=== PATIENT | female | born 1935 | race Caucasian/White ===

== ENCOUNTER 2017-01-09 09:14 | Outpatient (CLI) | payer OTHER ==
[~2017-01-09] VITALS: Ht 157.5 cm; Wt 65.0 kg
[2017-01-09 09:16] VITALS: BP 126/60; PULSE 79; RESP 18; Ht 157.5 cm; Wt 65.0 kg
[2017-01-09] MEDS ORDERED: FER325 PO (09:30)
[2017-01-09] MEDS ORDERED: LISI40TA9 PO (09:30)
[2017-01-09] MEDS ORDERED: ASPI-664 PO (09:30)
--- NOTE | 2017-01-09 13:42 | CONS ---
[facility] INITIAL OUTPATIENT CONSULTATION NOTE DATE OF CONSULTATION: 01/09/2017 PLACE OF SERVICE: [facility] ASSESSMENT AND PLAN: A very pleasant 81-year-old lady with hypertension and dyslipidemia and a few other comorbidities who became septic likely from complication of E. coli UTI as well as acute cholecystitis well managed with percutaneous cholecystostomy tube placement. In this setting, the best results are achieved by elective laparoscopic cholecystectomy, which would both take the tube out of the clinical picture as well as take the gallbladder out of the body which would then prevent further episodes hopefully in the future. The patient is physically strong enough and eligible to undergo this operation, and I believe that this may still be an elective operation. She has an appointment to see her business performance advisor next week, which would be helpful in terms of risk assessment. I have recommended that she considers undergoing laparoscopic cholecystectomy. I described the reasoning behind the recommendation as well as the operation in detail, the risks, benefits and alternatives including the alternative of just removing the percutaneous cholecystostomy tube, but then having the added risk of further issues down the line. After careful consideration of all their options, the patient and her daughter appeared to understand and wished to proceed with surgery. With above assessment, I have recommend the followin. I agree with cardiology consultation as a preoperative workup. 2. History and physical with the patient's primary care physician. 3. Schedule the patient for laparoscopic, possible open cholecystectomy as an outpatient procedure with possible need for overnight observation given the recent events. Thank you again for allowing us to participate in the care of this very pleasant lady and her wonderful family. If there are any questions, please feel free to contact me at [phone]. UPDATED CLINICAL SUMMARY: A very pleasant 81-year-old lady with comorbidities including hypertension, who recently underwent percutaneous cholecystostomy tube placement at the end of October in an outside hospital. The patient was septic and had to be treated in the intensive care unit with bacteremia and eventually stabilized and was discharged home with followup plan to see a surgeon for a laparoscopic cholecystectomy. COMORBIDITIES: 1. BMI 26.2. 2. Hypertension. 3. Urinary tract infections. 4. Recent bacteremia as above linked to possible acute cholecystitis requiring percutaneous cholecystostomy tube placement 11/26/2016, associated with sepsis and acute hypoxia and non-STEMI with Escherichia coli urinary tract infection and gram-negative bacteremia. There was also acute renal injury during this episode and syncopal episode without obvious head injury. Hypomagnesemia, hypokalemia and thrombocytopenia was noted. 5. Dyslipidemia. 6. Iron deficiency. HISTORY OF PRESENT ILLNESS: The patient is a very pleasant 81-year-old lady with above-mentioned comorbidities whom we were kindly asked to consult regarding management of her gallbladder. Since the discharge from the hospital , she has been doing well without any other episodes of significant illness that required any visits to the emergency department or the hospital. She has had her cholecystostomy tube which has been putting out between 20 to 30 mL of greenish type fluid every day. She has not had any significant abdominal pain and no changes in her appetite or ability to eat. No blood in the stool or urine. She did not see other surgeons after her hospitalization and she was referred to us for possible cholecystectomy. ALLERGIES: NO KNOWN DRUG ALLERGIES. HOME MEDICATIONS: Include: 1. Aspirin. 2. Ferrous sulfate. 3. Lisinopril. SOCIAL HISTORY: The patient lives with family. She does not report any smoking , drinking, or intravenous drug use. FAMILY HISTORY: No mention of major medical, surgical or oncologic problems in the family. REVIEW OF SYSTEMS: Other than the above-mentioned, there are no other pertinent positives or pertinent negatives in a complete 14-point review of systems. PHYSICAL EXAMINATION: GENERAL: The patient appears to be a very pleasant lady of descent, appearing stated age, sitting in a chair comfortably and in no acute distress. She did walk in with a cane, but the family has explained that this was to prevent dizziness and that otherwise she does not need it to walk. BMI is 26.2. VITAL SIGNS: Temperature 98.1, blood pressure 126/60, pulse 79, respiratory rate 18, pulse oximetry 98% on room air. HEENT: Normocephalic and atraumatic. Extraocular muscles and hearing are grossly intact bilaterally and symmetrically. Sclerae are nonicteric. Oral cavity is clear; oral mucosa appeared to be pink and moist. Dentition: poor. NECK: Supple. There is no lymphadenopathy or JVD. There is no submental, submandibular or supraclavicular lymphadenopathy. CHEST: Rises symmetrically with each breath; patient is breathing comfortably. There are no audible wheezes, rales or rhonchi on the gross exam. HEART: Pulse is regular and palpable on the right wrist. Capillary refill was normal. Carotid pulses are palpable bilaterally and symmetrically in the neck. EXTREMITIES: Lower extremities contain no pitting edema around the ankles bilaterally and symmetrically. ABDOMEN: Soft, nontender and nondistended. There is no evidence of organomegaly, caput medusae, engorged subcutaneous veins or ascites. She has a percutaneous tube coming out from the right upper quadrant which is draining into a bag. No peritoneal signs or guarding. The bag contains minimal amount of fluid with hint of bile. SKIN: Appears to be pink and feels warm to touch. NEUROLOGIC: Awake, alert, and follows commands appropriately. LABORATORY DATA: None for this visit. IMAGING: The patient had a CT of the abdomen and pelvis dated 11/25/2016 that showed cholelithiasis with pericholecystic fluid, which may indicate acute cholecystitis. There was also bilateral pelviectasis of unclear significance which may be normal for this patient. She also had an IR cholangiogram tube placement 11/26/2016 that showed successful percutaneous cholecystostomy tube placement without any immediate problems. Dictated By: JUDY SANCHEZ/DAVID Conf#: [id number] DID#: [id number] CC: GIANCARLO CRUZ MD;*EndCC* MTDD
== END 2017-01-09 14:39 | disposition home or self-care (01) ==
LOC: HPC 09:14
PROVIDERS: ATTEND Transplant Surgery
DX: K81.0 Acute cholecystitis (principal); Z97.8 Presence of other specified devices; E78.5 Hyperlipidemia, unspecified; E61.1 Iron deficiency; Z87.440 Personal history of urinary (tract) infections; I21.4 Non-ST elevation (NSTEMI) myocardial infarction
CPT/HCPCS: G0463

== ENCOUNTER 2017-02-16 05:44 | Day surgery (SDC) | payer OTHER ==
[~2017-02-16] VITALS: Ht 157.5 cm; Wt 65.0 kg
[2017-02-16] VITALS (15 sets, daily range): BP systolic 95–140; BP diastolic 47–75; PULSE 62–74; RESP 14–27; Ht 157.5 cm; Wt 65.0 kg
[~2017-02-16 05:44] MED LIST: ASPI-664 PO; FER325 PO; LISI40TA9 PO
[2017-02-16] MEDS ORDERED: D5W-0.45 NACL + KCL 20 MEQ 1,000 ML IV SCH (06:00)
[2017-02-16] MEDS ORDERED: CEFAZOLIN 2 GM/50 ML (PMX) 50 ML IVPB SCH (06:00)
[2017-02-16] MEDS ORDERED: ATROPINE 1 MG/10 ML SYRINGE IV PRN (06:30)
[2017-02-16] MEDS ORDERED: FENTAnyl 50 MCG/ML VIAL IV PRN ×2 (06:30)
[2017-02-16] MEDS ORDERED: DIPHENHYDRAMINE 50 MG INJ IV PRN (06:30)
[2017-02-16] MEDS ORDERED: hydrALAzine 20 MG INJ IV PRN (06:30)
[2017-02-16] MEDS ORDERED: NEOSTIGMINE 3 MG/3 ML SYRINGE ONE (06:30)
[2017-02-16] MEDS ORDERED: MEPERIDINE 25 MG INJ IV PRN (06:30)
[2017-02-16] MEDS ORDERED: EPHEDrine SULFATE 50 MG/5 ML SYG IV PRN (06:30)
[2017-02-16] MEDS ORDERED: morphine (1 MG/ML) 10ML SYRINGE IV PRN ×3 (06:30)
[2017-02-16] MEDS ORDERED: OXYCODONE/ACETAMINOPHEN (5/325) TAB PO PRN ×2 (06:30)
[2017-02-16] MEDS ORDERED: FENTAnyl 50 MCG/ML VIAL ONE (06:30)
[2017-02-16] MEDS ORDERED: HYDROmorphONE (0.2 MG/ML) 10ML SYG IV PRN ×2 (06:30)
[2017-02-16] MEDS ORDERED: GLYCOPYRROLATE 0.4 MG INJ ONE (06:30)
[2017-02-16] MEDS ORDERED: PROPOFOL 20 ML ONE (06:30)
[2017-02-16] MEDS ORDERED: MIDAZOLAM 1 MG/ML 2 ML INJ IV PRN (06:30)
[2017-02-16] MEDS ORDERED: LABETALOL HCL 20MG INJ IV PRN (06:30)
[2017-02-16] MEDS ORDERED: MIDAZOLAM 1 MG/ML 2 ML INJ ONE (06:30)
[2017-02-16] MEDS ORDERED: LIDOCAINE 2% (SDV) 5 ML INJ ONE (06:30)
[2017-02-16] MEDS ORDERED: ONDANSETRON 4 MG INJ IV PRN (06:30)
[2017-02-16] MEDS ORDERED: ROCURONIUM 50 MG INJ ONE (06:30)
[2017-02-16] MEDS ORDERED: DEXAMETHASONE 4 MG/ML 1 ML INJ ONE (06:31)
[2017-02-16] MEDS ORDERED: ONDANSETRON 4 MG INJ ONE (06:31)
[2017-02-16] MEDS ORDERED: BUPIVACAINE 0.25%/EPI (SDV) 30 ML INJ ONE (06:56)
[2017-02-16] MEDS ORDERED: EPHEDrine SULFATE 50 MG/5 ML SYG ONE (07:00)
--- NOTE | 2017-02-16 07:30 | HPN ---
Date/Time of Note Date/Time of Note DATE: 02/16/17 TIME: 07:29 Interval H&P Admission Note Pt. seen H&P reviewed: No system changes Pt. seen H&P reviewed. No system changes (I attest that I have seen and examined the patient and reviewed the operation in detail, as well as its risks , benefits and alternatives of the operation). I attest that I have seen and examined the patient and reviewed in detail the operation, and its associated risks, benefits and alternative. I have answered all the patient's questions to the best of my ability and the patient wishes to proceed. Please refer to rest of electronic medical record for additional updates. JUDY POMPA M.D. Feb 16, 2017 07:30
[2017-02-16] MEDS ORDERED: SUCCINYLCHOLINE CHLORIDE 100 MG/5 ML SYG IV ONE (07:46)
[2017-02-16] MEDS ORDERED: LABETALOL HCL 20MG INJ ONE (08:30)
[2017-02-16] MEDS ORDERED: hydrALAzine 20 MG INJ ONE (08:37)
[2017-02-16] MEDS: HYDROmorphONE (0.2 MG/ML) 10ML SYG IV PRN ×3 (09:58→10:20)
--- NOTE | 2017-02-16 09:58 | OPR ---
Date/Time of Note Date/Time of Note DATE: 02/16/17 TIME: 09:57 Operative Report Operative\Procedure Findings [facility] INPATIENT OPERATIVE NOTE PLACE OF SERVICE: [facility] DATE OF SURGERY: 02/16/2017 PREOPERATIVE DIAGNOSIS: 1. Bacteremia end of October 2016, managed at an outside hospital, linked to possible acute cholecystitis requiring percutaneous cholecystostomy tube placement 11/26/2016, associated with sepsis and acute hypoxia and non-STEMI with Escherichia coli urinary tract infection and gram-negative bacteremia. There was also acute renal injury during this episode and syncopal episode without obvious head injury. Hypomagnesemia, hypokalemia and thrombocytopenia was noted. 2. Hypertension. 3. Urinary tract infections. 4. BMI 26.2. 5. Dyslipidemia. 6. Iron deficiency. POSTOPERATIVE DIAGNOSIS: 1. Bacteremia end of October 2016, managed at an outside hospital, linked to possible acute cholecystitis requiring percutaneous cholecystostomy tube placement 11/26/2016, associated with sepsis and acute hypoxia and non-STEMI with Escherichia coli urinary tract infection and gram-negative bacteremia. There was also acute renal injury during this episode and syncopal episode without obvious head injury. Hypomagnesemia, hypokalemia and thrombocytopenia was noted. 2. Hypertension. 3. Urinary tract infections. 4. BMI 26.2. 5. Dyslipidemia. 6. Iron deficiency. OPERATION: 1. Laparoscopic cholecystectomy SURGEON: Judy Pompa M.D. CARD READER: None ANESTHESIA: General endotracheal tube anesthesia ANESTHESIOLOGIST: John Nieves M.D. BRIEF SUMMARY: An otherwise uncomplicated laparoscopic cholecystectomy was performed with findings of chronic cholecystitis. We also removed the percutaneous cholecystostomy drain. UPDATED CLINICAL SUMMARY: A very pleasant 81-year-old lady with comorbidities including hypertension, who recently underwent percutaneous cholecystostomy tube placement at the end of October in an outside hospital. The patient was septic and had to be treated in the intensive care unit with bacteremia and eventually stabilized and was discharged home with followup plan to see a surgeon for a laparoscopic cholecystectomy. COMORBIDITIES: 1. BMI 26.2. 2. Hypertension. 3. Urinary tract infections. 4. Recent bacteremia as above linked to possible acute cholecystitis requiring percutaneous cholecystostomy tube placement 11/26/2016, associated with sepsis and acute hypoxia and non-STEMI with Escherichia coli urinary tract infection and gram-negative bacteremia. There was also acute renal injury during this episode and syncopal episode without obvious head injury. Hypomagnesemia, hypokalemia and thrombocytopenia was noted. 5. Dyslipidemia. 6. Iron deficiency. BRIEF HISTORY: The patient is a very pleasant 81-year-old lady with hypertension and dyslipidemia and a few other comorbidities who became septic likely from complication of E. coli UTI as well as acute cholecystitis at an outside hospital towards the end of October. She was managed with percutaneous cholecystostomy tube placement on 11/26/2016. I later evaluated her in the office and found her to be an acceptable surgical candidate for an elective laparoscopic cholecystectomy. The patient appear to be physically strong enough and eligible to undergo this operation. Cardiac clearance was recommended. I recommended that she considers undergoing laparoscopic cholecystectomy. I described the reasoning behind the recommendation as well as the operation in detail, the risks, benefits and alternatives including the alternative of just removing the percutaneous cholecystostomy tube, but then having the added risk of further issues down the line. After careful consideration of all their options, the patient and her daughter appeared to understand and wished to proceed with surgery. For a detailed report of my consultation with patient and family, please refer to my separate consultation note. STATEMENT OF THE INFORMED CONSENT: The patient and family appeared to understand the risks of the operation to include, but not be limited to risk of postoperative pain and scar tissue, possible infection or bleeding requiring other interventions such as opening the wound, placement of drainage catheters, or other operative interventions; possible injury to surrounding to structures including bowel, bladder, bile duct, or blood vessels, or solid organs such as liver, kidney, or pancreas requiring other interventions or procedures; possible leakage of bile from surgical clip sites, suture lines, or worse, from common bile duct injury, causing significant increase in morbidity and mortality and requiring multiple interventions including but not limited to, placement of drainage catheters, imaging studies, as well as operative interventions; possible other source of sepsis such as urinary tract infections or pneumonias, or other sources of potentially life threatening problems such as deep venous thrombus formation causing pulmonary embolism, myocardial arrhythmias and infarctions, and even . We also briefly discussed the potential need to receive blood products and their potential complications of blood transfusion reactions, transmission of infections, or other complications. After careful consideration of all their options, the patient and family appeared to understand and wished to proceed with surgery. DESCRIPTION OF PROCEDURE: After obtaining informed consent, the patient was brought into the operating room and was placed in a normal supine position, where successful general endotracheal tube anesthesia was performed. The patient 's abdominal skin was prepped and draped, from the nipple line down to the level of the groins, in the usual sterile fashion. Intravenous access was already in place, and appropriately chosen and dosed prophylactic intravenous antimicrobials were administered. We then called a surgical time-out where patient's identification, date of , nature of the operation, allergies, presence of intravenous antimicrobials, presence of needed equipment, and any other concerns were reviewed and agreed upon by all members of the operating room team. We then started the operation by placing a 5-mm skin incision in the right- upper quadrant, subcostal midclavicular line, and introduced a 5-mm [employer] trocar into the peritoneal space, visualizing all the layers of the abdominal wall as we entered. Note that there was no indication of any injury to underlying structures once we entered the peritoneum. We insufflated the abdominal cavity to a maximum pressure of 15 mmHg, again, confirmed lack of any injury to underlying structures prior to visualizing the rest of the abdominal cavity. We found the fundus of the gallbladder to be visible and attached to the anterior abdominal wall at the site of insertion of the cholecystostomy drain. There was no evidence of malignancy. No evidence of calcifications or significant issues with adhesions, or other abnormalities. The liver appeared to be healthy. With this information, we went a head and placed the other trocars under direct visualization, after injecting their sites with 0.25% Marcaine with epinephrine , placing a 5-mm trocar in the umbilical midline area, a 5-mm trocar in the right anterior axillary line, and a 12-mm trocar in the midline subxiphoid region. With our instruments in place, we had excellent visualization and access to the right-upper quadrant. We removed and sent the percutaneous cholecystostomy drain into pieces to pathology for gross identification only. We then use judicious amount of cautery and disconnected the gallbladder from the anterior abdominal wall. We then grasped the fundus of the gallbladder and pointed up towards the right- upper quadrant. We were then able to grasp the infundibulum and pull it out in order to expose the critical triangle of Calot. We then placed our usual serosal cuts along the long axis of the gallbladder 1 cm away from its attachment to the liver bed up towards the fundus, and then joined these 2 lines under the infundibulum, taking care not to deliver any energy to underlying structures. Because of significant amount of scarring in the area of triangle of Calot, I decided to maximize the degree of safety of the operation and took the gallbladder top-down using cautery. We then performed meticulous dissection to identify and circumferentially isolate both the cystic duct and cystic artery, prior to transecting them between 2 surgical Endoclips, proximally and one distally on the cystic artery and 3 surgical endoclips proximally and one distally on the cystic duct, transecting both using cold scissors, and only after making sure that these were the only 2 structures going into the gallbladder. We then delivered the gallbladder out inside of an EndoCatch bag through the 12-mm trocar site without enlarging the fascia or contaminating the wound. The gallbladder was sent to Pathology for evaluation. Several stones were removed from the gallbladder. Returning to the abdominal cavity, we ensured that there was adequate hemostasis and bile-stasis prior to removal of all of or equipment, including the pneumoperitoneum, and then reapproximating the 12-mm trocar site with one [id number] 0 Vicryl suture, followed by washing the wounds with copious amounts of normal saline, and then reapproximating the skin using interrupted 4- 0 Monocryl sutures. Light dressing was then applied. At the end of the operation, both the sponge count and needle count were reportedly correct x2. The patient tolerated the procedure without any reported complications. ESTIMATED BLOOD LOSS: 30 mL BLOOD OR BLOOD PRODUCT TRANSFUSIONS: None to my knowledge. SPECIMENS: 1. Percutaneous cholecystostomy drain in 2 pieces for gross ID only 2. Gallbladder COMPLICATIONS: None. DISPOSITION: Recovery area. Disclaimer: Inadvertent spelling and grammatical errors are likely due to EHR/ dictation software use and do not reflect on the quality of delivered patient care. JUDY POMPA M.D. Feb 16, 2017 09:58
[2017-02-16] MEDS ORDERED: HYDROCODONE/APAP (5/325) TAB PO PRN ×2 (10:00)
[2017-02-16] MEDS ORDERED: BISACODYL 10 MG SUPP PR PRN (10:00)
[2017-02-16] MEDS ORDERED: DOCUSATE SODIUM 100 MG CAP PO PRN (10:00)
== END 2017-02-16 12:30 | disposition home or self-care (01) ==
LOC: SDS 05:44
PROVIDERS: ATTEND Transplant Surgery
DX: K80.10 Calculus of gallbladder with chronic cholecystitis without obstruction (principal); I10 Essential (primary) hypertension; N39.0 Urinary tract infection, site not specified; E78.5 Hyperlipidemia, unspecified; D50.9 Iron deficiency anemia, unspecified
CPT/HCPCS: 47562; 86850; 86900; 86901; 88300; 88304; J0360; J1100; J1170; J2250; J2405; J2710; J3010; J7999; Z7512; Z7610

== ENCOUNTER 2017-03-01 10:39 | Outpatient (CLI) | payer OTHER ==
[~2017-03-01] VITALS: Ht 157.5 cm; Wt 65.0 kg
[2017-03-01 10:43] VITALS: BP 118/58; PULSE 77; RESP 18; Ht 157.5 cm; Wt 65.0 kg
--- NOTE | 2017-03-01 12:05 | PN ---
Date/Time of Note Date/Time of Note DATE: 03/01/17 TIME: 11:34 Assessment/Plan Assessment/Plan Assessment/Plan [facility] Progress Note Date of Service: 03/01/17 Today's Impression & Plan: Overall doing well post op without major issues, but does have enough pain/ discomfort symptoms near the sub-xiphoid incision that warrants further testing. No obvious evidence of active infection, and certainly no obvious signs of major complication such as bile leak, liver failure, intestinal perforation or cardiopulmonary issues. Differential does include infection, seroma, hernia, or other wound problems, and for this reason, I am recommending further testing as outlined below. Explained this to the patient and her daughter and answered all of their questions to the best my ability. They appeared to understand and agreed with the plans. With above assessment, I've recommended the following for today: 1. Complete set of labs stat 2. CT scan of abdomen and pelvis with IV and oral contrast govind 3. Follow-up with me after above is done either next week during regular office hours or earlier than that if the patient has any findings that require intervention. I also was very clear to patient and family to come in through the emergency department if she has any worsening of her symptoms including occurrence of fevers, more abdominal pain, nausea vomiting or diarrhea, or other major symptoms. Thank you again for your great care of this very pleasant patient and wonderful family. If there are any questions, please feel free to call me at [phone]. TOTAL VISIT TIME: 20 minutes of which more than half was spent in [id number] discussion with the patient, possibly including family, as well as coordination of care between multiple physicians and providers. Disclaimer: Inadvertent spelling or grammatical errors are likely due to EHR/ dictation software use and do not reflect on the overall quality of patient care. Updated Clinical Summary: A very pleasant 81-year-old lady with comorbidities including hypertension, who recently underwent percutaneous cholecystostomy tube placement at the end of October in an outside hospital. The patient was septic and had to be treated in the intensive care unit with bacteremia and eventually stabilized and was discharged home with followup plan to see a surgeon for a laparoscopic cholecystectomy. After evaluation from us, I scheduled the patient for laparoscopic cholecystectomy which was performed at [facility] on 02/16/2017 with finding of chronic cholecystitis. We also removed her percutaneous drain during the same operation. COMORBIDITIES: 1. Bacteremia end of October 2016, managed at an outside hospital, linked to possible acute cholecystitis requiring percutaneous cholecystostomy tube placement 11/26/2016, associated with sepsis and acute hypoxia and non-STEMI with Escherichia coli urinary tract infection and gram-negative bacteremia. There was also acute renal injury during this episode and syncopal episode without obvious head injury. Hypomagnesemia, hypokalemia and thrombocytopenia was noted. 2. Hypertension. 3. Urinary tract infections. 4. BMI 26.2. 5. Dyslipidemia. 6. Iron deficiency. 7. S/p laparoscopic cholecystectomy and removal of her percutaneous drain at [facility] on 02/16/2017 with finding of severe acute and chronic cholecystitis associated with mucosal ulceration and reactive epithelial changes, cholesterolosis, cholelithiasis (gross only), reactive lymph node and no evidence of malignancy. Subjective: No major events or complaints after discharge up to about 2 days ago when the patient started complaining of abdominal pain in the area of the subxiphoid incision. Family also noted decreased appetite for the patient and no fevers, nausea or vomiting, diarrhea or constipation. Patient has been fatigued and not able to be as active as she would like to. No n/v/d; no sob or cp; + flatus ; + BM and normal Objective: Vitals: See below Exam: GENERAL: On exam, the patient was sitting in a chair and appeared to be comfortable and in no acute distress. ABDOMEN: Soft, nontender and nondistended except for significant tenderness in the area of the subxiphoid upper midline incision. No evidence of drainage from the wound, bulge corresponding to hernia, or significant skin changes with the exception of slight erythema. Incisions are otherwise clean, dry and intact without any evidence of erythema, edema, discharge, or hernia. There are no peritoneal signs or guarding. SKIN: Skin appears to be pink and feels warm to touch. NEUROLOGIC: Patient is awake, alert, and follows commands appropriately. Exam/Review of Systems Vital Signs Vitals Vital Signs Date Time Temp Pulse Resp B/P Pulse Ox O2 Delivery O2 Flow Rate FiO2 03/01/17 10:43 98.2 77 18 118/58 96 Room Air JUDY POMPA M.D. Mar 01, 2017 12:05
== END 2017-03-01 16:11 | disposition home or self-care (01) ==
LOC: HPC 10:39
PROVIDERS: ATTEND Transplant Surgery
DX: R10.9 Unspecified abdominal pain (principal); I10 Essential (primary) hypertension; E78.5 Hyperlipidemia, unspecified; E61.1 Iron deficiency
CPT/HCPCS: G0463

== ENCOUNTER 2017-03-03 17:15 | Inpatient (IN) | payer OTHER ==
[~2017-03-03] VITALS: Ht 160 cm; Wt 65.0 kg
[2017-03-03 17:23] VITALS: Ht 160 cm; Wt 65.0 kg
[2017-03-03] MEDS ORDERED: SODIUM CHLORIDE 0.9% 1L BAG IV* STA (17:31)
[2017-03-03] MEDS ORDERED: PIPER-TAZO 3.375 GM IV (PMX) 100 ML IVPB STA (17:31)
[2017-03-03] MEDS ORDERED: VANCOMYCIN 1 GM (PMX) 250 ML IVPB ONE (18:00)
[2017-03-03] MEDS ORDERED: HYDR12.58 PO (18:07)
--- NOTE | 2017-03-03 18:14 | RADRPT ---
PROCEDURE: XR Chest. CLINICAL INDICATION: Possible sepsis. TECHNIQUE: Single frontal view of the chest. COMPARISON: None. FINDINGS: Cardiomegaly and atherosclerotic calcifications in the thoracic aorta. Mild left lung base atelecta sis versus airspace disease. The lungs are otherwise clear. No signs of pleural fluid or pneumothor ax are seen. The osseous structures and soft tissues are unremarkable. IMPRESSION: Mild left lung base atelectasis versus airspace disease. RPTAT: [facility] Physician Ignacio Date Time Electronically viewed and signed by Physician Ignacio on 03/03/2017 18:14 RS/
[2017-03-03 18:23] LABS: ADD SCAN DIFF NO
[2017-03-03] MEDS ORDERED: ONDANSETRON 4 MG INJ IV PRN (18:30)
[2017-03-03] MEDS ORDERED: ACETAMINOPHEN 325 MG TAB PO PRN (18:30)
[2017-03-03 18:31] LABS: BASOPHILS % 0.2 % (0.0-2.0); EOSINOPHILS # 0.1 10^3/ul (0.0-0.5); EOSINOPHILS % 0.9 % (0.0-7.0); HEMATOCRIT 26.7 % (37.0-47.0); LYMPHOCYTES # 1.2 10^3/ul (0.8-2.9); LYMPHOCYTES % 11.2 % (15.0-51.0); MEAN CORPUSCULAR HEMOGLOBIN 29.9 pg (29.0-33.0); MEAN CORPUSCULAR HGB CONC 33.7 g/dl (32.0-37.0); MEAN CORPUSCULAR VOLUME 88.7 fl (82.0-101.0); MONOCYTE # 0.9 10^3/ul (0.3-0.9); MONOCYTES % 8.5 % (0.0-11.0); NEUTROPHIL # 8.5 10^3/ul (1.6-7.5); NEUTROPHILS % 78.6 % (39.0-77.0); PLATELET COUNT 393 10^3/UL (140-415); RED BLOOD COUNT 3.01 10^6/ul (4.20-5.40); WHITE BLOOD COUNT 10.8 10^3/ul (4.8-10.8)
[2017-03-03 18:41] LABS: INR 1.09; PROTIME 14.1 Sec (12.2-14.2); PT RATIO 1.1
[2017-03-03 18:42] LABS: PARTIAL THROMBOPLASTIN TIME 28.8 Sec (25.0-35.0)
[2017-03-03 18:46] LABS: ADD UMIC NO; UR ASCORBIC ACID NEGATIVE (NEGATIVE); UR BILIRUBIN (Dip) NEGATIVE (NEGATIVE); UR BLOOD (Dip) NEGATIVE (NEGATIVE); UR CLARITY CLEAR (CLEAR); UR COLOR YELLOW (YELLOW); UR GLUCOSE (Dip) NEGATIVE (NEGATIVE); UR KETONES (Dip) NEGATIVE (NEGATIVE); UR LEUKOCYTE ESTERASE (Dip) NEGATIVE Leu/ul (NEGATIVE); UR NITRITE (Dip) NEGATIVE (NEGATIVE); UR SPECIFIC GRAVITY (Dip) 1.041 (1.003-1.030); UR TOTAL PROTEIN (Dip) NEGATIVE (NEGATIVE); UR UROBILINOGEN (Dip) NEGATIVE (NEGATIVE)
[2017-03-03 18:51] LABS: ALANINE AMINOTRANSFERASE 48 IU/L (13-69); ALBUMIN/GLOBULIN RATIO 1.11; ALKALINE PHOSPHATASE 187 IU/L (42-121); ANION GAP 22 (8-16); ASPARTATE AMINO TRANSFERASE 46 IU/L (15-46); BILIRUBIN,INDIRECT 0.1 mg/dl (0-1.1); BILIRUBIN,TOTAL 0.1 mg/dl (0.2-1.3); BLOOD UREA NITROGEN 24 mg/dl (7-20); CALCIUM 9.6 mg/dl (8.4-10.2); CARBON DIOXIDE 27 mmol/L (21-31); CHLORIDE 98 mmol/L (97-110); CREATININE 1.18 mg/dl (0.44-1.00); GLUCOSE 112 mg/dl (70-220); POTASSIUM 4.5 mmol/L (3.5-5.1); SODIUM 142 mmol/L (135-144); TOTAL PROTEIN 7.6 g/dl (6.1-8.1)
[2017-03-03 19:03] LABS: TROPONIN-I < 0.012 ng/ml (0.00-0.12)
[2017-03-03] MEDS ORDERED: ONDANSETRON 4 MG INJ IV STA (19:14)
[2017-03-03] MEDS ORDERED: morphine 4 MG/ML VIAL IV STA (19:14)
--- NOTE | 2017-03-03 19:41 | ERA ---
ER Documentation Chief Complaint Date/Time DATE: 03/03/17 TIME: 19:38 Chief Complaint sent by PCP for infection uncause HPI Patient is a 81-year-old female who presents with pus from a surgical wound. The symptoms started today. She has pain around the incision in the epigastric area. The patient saw Dr. Christy today who sent the patient to the emergency department. The patient denies fevers and has had no recent antibiotics. She tried a pain medication. She had pus and blood from the wound in the emergency department waiting room. ROS All systems reviewed and are negative except as per history of present illness. Medications Home Meds Reported Medications Hydrochlorothiazide* (Hydrochlorothiazide*) 12.5 Mg Tablet, 12.5 MG PO DAILY, # 30 TAB 03/03/17 Lisinopril* (Lisinopril*) 40 Mg Tablet, 40 MG PO DAILY, #30 TAB 01/09/17 Aspirin (Low Dose Aspirin) 81 Mg Tablet.dr, 81 MG PO DAILY, #30 TAB 01/09/17 Discontinued Reported Medications Ferrous Sulfate* (Ferrous Sulfate*) 325 Mg Tabec, 325 MG PO DAILY, TAB 01/09/17 Allergies Allergies: Coded Allergies: No Known Drug Allergies (Verified Allergy, Unknown, 03/03/17) PMhx/Soc History of Surgery: Yes (HERNIA REPAIR, GALL BLADDER DRAIN ) Anesthesia Reaction: No Hx Neurological Disorder: No Hx Respiratory Disorders: No Hx Cardiac Disorders: No Hx Psychiatric Problems: No Hx Miscellaneous Medical Probl: Yes (HIGH CHOLESTEROL) Hx Alcohol Use: No Hx Substance Use: No Hx Tobacco Use: No Smoking Status: Never smoker FmHx Family History: No diabetes Physical Exam Vitals Vital Signs Date Time Temp Pulse Resp B/P Pulse Ox O2 Delivery O2 Flow Rate FiO2 03/03/17 19:04 98.2 89 18 114/83 98 Room Air 03/03/17 18:12 Nasal Cannula 2 03/03/17 17:23 98.2 77 20 96/53 97 Physical Exam Const: Moderate distress secondary to pain Head: Atraumatic Eyes: Normal Conjunctiva ENT: Normal External Ears, Nose and Mouth. Neck: Full range of motion..~ No meningismus. Resp: Clear to auscultation bilaterally Cardio: Regular rate and rhythm, no murmurs Abd: Soft, fluctuant area in the midepigastric area with pus from the surgical wound Skin: Fluctuance in the midepigastric area with abscess Back: No midline or flank tenderness Ext: No cyanosis, or edema Neur: Awake and alert Psych: Normal Mood and Affect Result Diagram: 03/03/17180703/03/171807 Results 24 hrs Laboratory Tests Test 03/03/17 18:08 White Blood Count 10.810^3/ul Red Blood Count 3.0110^6/ul Hemoglobin 9.0g/dl Hematocrit 26.7% Mean Corpuscular Volume 88.7fl Mean Corpuscular Hemoglobin 29.9pg Mean Corpuscular Hemoglobin Concent 33.7g/dl Red Cell Distribution Width 14.0% Platelet Count 80382^3/UL Mean Platelet Volume 9.0fl Neutrophils % 78.6% Lymphocytes % 11.2% Monocytes % 8.5% Eosinophils % 0.9% Basophils % 0.2% Nucleated Red Blood Cells % 0.0/100WBC Neutrophils # 8.510^3/ul Lymphocytes # 1.210^3/ul Monocytes # 0.910^3/ul Eosinophils # 0.110^3/ul Basophils # 0.010^3/ul Nucleated Red Blood Cells # 0.010^3/ul Prothrombin Time 14.1Sec Prothrombin Time Ratio 1.1 INR International Normalized Ratio 1.09 Activated Partial Thromboplast Time 28.8Sec Urine Color YELLOW Urine Clarity CLEAR Urine pH 5.0 Urine Specific [place] 1.041 Urine Ketones NEGATIVEmg/dL Urine Nitrite NEGATIVEmg/dL Urine Bilirubin NEGATIVEmg/dL Urine Urobilinogen NEGATIVEmg/dL Urine Leukocyte Esterase NEGATIVELeu/ul Urine Hemoglobin NEGATIVEmg/dL Urine Glucose NEGATIVEmg/dL Urine Total Protein NEGATIVEmg/dl Sodium Level 142mmol/L Potassium Level 4.5mmol/L Chloride Level 98mmol/L Carbon Dioxide Level 27mmol/L Anion Gap 22 Blood Urea Nitrogen 24mg/dl Creatinine 1.18mg/dl Glucose Level 112mg/dl Lactic Acid Level 0.8mmol/L Calcium Level 9.6mg/dl Total Bilirubin 0.1mg/dl Direct Bilirubin 0.00mg/dl Indirect Bilirubin 0.1mg/dl Aspartate Amino Transf (AST/SGOT) 46IU/L Alanine Aminotransferase (ALT/SGPT) 48IU/L Alkaline Phosphatase 187IU/L Troponin I < 0.012ng/ml Total Protein 7.6g/dl Albumin 4.0g/dl Globulin 3.60g/dl Albumin/Globulin Ratio 1.11 Current Medications Medications (Trade) Dose Ordered Sig/[place] Route PRN Reason Start Time Stop Time Status Last Admin Dose Admin Sodium Chloride 1980 ml 1,980 ml BOLUS OVER 2 HOURS STAT IV* 03/03/17 17:31 03/03/17 17:33 DC 03/03/17 18:28 Vancomycin HCl 250 ml @ 125 mls/hr ONCE ONCE IVPB 03/03/17 18:00 03/03/17 19:59 03/03/17 18:57 Piperacillin Sod/ Tazobactam Sod (Zosyn 3.375gm/ 100 ml (Pmx)) 100 ml @ 200 mls/hr ONCE STAT IVPB 03/03/17 17:31 03/03/17 18:00 DC 03/03/17 18:22 Ondansetron HCl (Zofran Inj) 4 mg BRIDGE ORDER PRN IV NAUSEA AND/OR VOMITING 03/03/17 18:30 03/04/17 18:29 Acetaminophen (Tylenol Tab) 650 mg ER BRIDGE PRN PO MILD PAIN/FEVER 03/03/17 18:30 03/04/17 18:29 Morphine Sulfate (morphine) 4 mg ONCE STAT IV 03/03/17 19:14 03/03/17 19:15 DC 03/03/17 19:30 Ondansetron HCl (Zofran Inj) 4 mg ONCE STAT IV 03/03/17 19:14 03/03/17 19:15 DC 03/03/17 19:30 Procedures/MDM Abscess Incision and Drainage with irrigation by me: Location: Midepigastric abdomen Anesthesia: None required Technique: I cut one stitch in the inferior portion of the surgical scar and was able to express pus and a small amount of blood Packing: None required Complications: Neurovascularly intact post procedure Patient is a 81-year-old female presents with a wound in her abdomen. She has abdominal wall abscess. She was given broad-spectrum antibiotics with vancomycin and Zosyn. I spoke with Dr. Christy and made a small incision at the base of the incision was able to express pus from the wound. The patient will be admitted to the care of the panel team and Dr. Christy will see the patient in consultation. At this point I doubt sepsis. Departure Diagnosis: Primary Impression: Abdominal wall abscess Additional Impression: Anemia Qualified Code: D64.9 - Anemia, unspecified type Condition: FRANDY Duncan MD Mar 03, 2017 19:41
--- NOTE | 2017-03-03 20:40 | HP ---
Date/Time of Note Date/Time of Note DATE: 03/03/17 TIME: 20:09 Assessment/Plan VTE Prophylaxis VTE Prophylaxis Intervention: LMWH Assessment/Plan Assessment/Plan 81 yo F who presents with abd pain and purulent discharge from recent surgical site managed for the followin. Post op abd abscess / cellulitis 2. HTN: controlled 3. Dyslipidemia : on tx 4. Chronic iron def anemia on supplements 5. MARIELA r/o CKD PLAN: admit for surgical review, abscess quite superficial and drained in ER, no further imaging for now unless surgery thinks otherwise, patient non septic empiric abx / wound cultures / PRN pain control/ antiemetics/ antipyretics/ supportive care Gentle hydration / serial labs / hold diuretic and ACEi for now / Renally dose all meds Further interventions per clinical course Prophylaxis: Pepcid / lovenox HPI/ROS Admit Date/Time Admit Date/Time March 03, 2017 Hx of Present Illness 81-year-old female who was sent to the emergency room from her surgeon's office where she had presented with purulent discharge from the recent surgical wound. Patient was seen in this hospital a couple of weeks ago and managed for cholecystitis complicated by urinary tract infection and bacteremia, she underwent a laparoscopic cholecystectomy February 16, 2017.She was seen March 01, 2017 in follow-up and at that time her wound incisions seem to be clean and dry without any bruising. She however did have some pain and discomfort in the subxiphoid incision. She was supposed to obtain further imaging and testing for that however for different reasons this was not done. Patient continued to have pain then today developed purulent discharge at the site. She went to be seen and was referred from the office to the emergency room. She has not had any fever, she has felt sick and had some nausea but no actual vomiting, she denies dysuria or hematuria. She has no chest pain no palpitations, no syncopal episodes, no shortness of breath. ROS 12 point review if systems was done and pertinent findings are as noted. PMH/Family/Social Past Medical History * HTN * dyslipidemia * iron deficiency * Multiple UTIs and bacteremia Past Surgical History * Lap meena 02/16/17 Family History Significant Family History: no pertinent family hx Social History Alcohol Use: none Smoking Status: Never smoker Exam/Review of Systems Vital Signs Vitals VS - Last 72 Hours, by Label Date Time Temp Pulse Resp B/P Pulse Ox O2 Delivery O2 Flow Rate FiO2 03/03/17 20:53 98.7 82 18 118/58 96 Room Air 03/03/17 19:04 98.2 89 18 114/83 98 Room Air 03/03/17 18:12 Nasal Cannula 2 03/03/17 17:23 98.2 77 20 96/53 97 Vital Signs Date Time Temp Pulse Resp B/P Pulse Ox O2 Delivery O2 Flow Rate FiO2 03/03/17 19:04 98.2 89 18 114/83 98 Room Air 03/03/17 18:12 2 Exam Constitutional: alert, frail, oriented, No distress Psych: nl mood/affect Head: atraumatic, normocephalic Eyes: PERRL ENMT: mucosa pink and moist Neck: supple Respiratory: clear to auscultation, diminished breath sounds Cardiovascular: regular rate and rhythm, No murmurs/extra sounds Gastrointestinal: bowel sounds, other (mild cellulitis surrounding scar in epigastrium with no active oozing, currently non fluctuant), soft Extremities: No edema Neurological: nl mental status Labs Result Diagram: 03/03/17180703/03/171807 Procedures Procedures Laboratory Tests Test 03/03/17 18:08 White Blood Count 10.810^3/ul Red Blood Count 3.0110^6/ul Hemoglobin 9.0g/dl Hematocrit 26.7% Mean Corpuscular Volume 88.7fl Mean Corpuscular Hemoglobin 29.9pg Mean Corpuscular Hemoglobin Concent 33.7g/dl Red Cell Distribution Width 14.0% Platelet Count 98059^3/UL Mean Platelet Volume 9.0fl Neutrophils % 78.6% Lymphocytes % 11.2% Monocytes % 8.5% Eosinophils % 0.9% Basophils % 0.2% Nucleated Red Blood Cells % 0.0/100WBC Neutrophils # 8.510^3/ul Lymphocytes # 1.210^3/ul Monocytes # 0.910^3/ul Eosinophils # 0.110^3/ul Basophils # 0.010^3/ul Nucleated Red Blood Cells # 0.010^3/ul Prothrombin Time 14.1Sec Prothrombin Time Ratio 1.1 INR International Normalized Ratio 1.09 Activated Partial Thromboplast Time 28.8Sec Urine Color YELLOW Urine Clarity CLEAR Urine pH 5.0 Urine Specific [place] 1.041 Urine Ketones NEGATIVEmg/dL Urine Nitrite NEGATIVEmg/dL Urine Bilirubin NEGATIVEmg/dL Urine Urobilinogen NEGATIVEmg/dL Urine Leukocyte Esterase NEGATIVELeu/ul Urine Hemoglobin NEGATIVEmg/dL Urine Glucose NEGATIVEmg/dL Urine Total Protein NEGATIVEmg/dl Sodium Level 142mmol/L Potassium Level 4.5mmol/L Chloride Level 98mmol/L Carbon Dioxide Level 27mmol/L Anion Gap 22 Blood Urea Nitrogen 24mg/dl Creatinine 1.18mg/dl Glucose Level 112mg/dl Lactic Acid Level 0.8mmol/L Calcium Level 9.6mg/dl Total Bilirubin 0.1mg/dl Direct Bilirubin 0.00mg/dl Indirect Bilirubin 0.1mg/dl Aspartate Amino Transf (AST/SGOT) 46IU/L Alanine Aminotransferase (ALT/SGPT) 48IU/L Alkaline Phosphatase 187IU/L Troponin I < 0.012ng/ml Total Protein 7.6g/dl Albumin 4.0g/dl Globulin 3.60g/dl Albumin/Globulin Ratio 1.11 Current Medications Medications (Trade) Dose Ordered Sig/[place] Route PRN Reason Start Time Stop Time Status Last Admin Dose Admin Sodium Chloride 1980 ml 1,980 ml BOLUS OVER 2 HOURS STAT IV* 03/03/17 17:31 03/03/17 17:33 DC 03/03/17 18:28 1,980 ML Vancomycin HCl 250 ml @ 125 mls/hr ONCE ONCE IVPB 03/03/17 18:00 03/03/17 19:59 DC 03/03/17 18:57 125 MLS/HR Piperacillin Sod/ Tazobactam Sod (Zosyn 3.375gm/ 100 ml (Pmx)) 100 ml @ 200 mls/hr ONCE STAT IVPB 03/03/17 17:31 03/03/17 18:00 DC 03/03/17 18:22 200 MLS/HR Ondansetron HCl (Zofran Inj) 4 mg BRIDGE ORDER PRN IV NAUSEA AND/OR VOMITING 03/03/17 18:30 03/04/17 18:29 Acetaminophen (Tylenol Tab) 650 mg ER BRIDGE PRN PO MILD PAIN/FEVER 03/03/17 18:30 03/04/17 18:29 Morphine Sulfate (morphine) 4 mg ONCE STAT IV 03/03/17 19:14 03/03/17 19:15 DC 03/03/17 19:30 4 MG Ondansetron HCl (Zofran Inj) 4 mg ONCE STAT IV 03/03/17 19:14 03/03/17 19:15 DC 03/03/17 19:30 4 MG PROCEDURE: XR Chest. CLINICAL INDICATION: Possible sepsis. TECHNIQUE: Single frontal view of the chest. COMPARISON: None. FINDINGS: Cardiomegaly and atherosclerotic calcifications in the thoracic aorta. Mild left lung base atelectasis versus airspace disease. The lungs are otherwise clear. No signs of pleural fluid or pneumothorax are seen. The osseous structures and soft tissues are unremarkable. IMPRESSION: Mild left lung base atelectasis versus airspace disease. RPTAT: [facility] Physician Ignacio Date Time Electronically viewed and signed by Ruby Shah Physician on 03/03/2017 18:14 RS/ CC: FRANDY OAKLEY MD I reviewed EKG Rate: Within normal limits Rhythm: sinus Note: No ST elevation or depressions noted concerning for acute ischemic event. KENAN MARSHALL. Mar 03, 2017 20:19
[2017-03-03 20:53] VITALS: TEMP 98.7
[2017-03-03] MEDS ORDERED: VANCOMYCIN IV PER PHARMACY XX SCH (21:30)
[2017-03-03 21:42] LABS: ADD UMIC NO; UR ASCORBIC ACID NEGATIVE (NEGATIVE); UR BILIRUBIN (Dip) NEGATIVE (NEGATIVE); UR BLOOD (Dip) NEGATIVE (NEGATIVE); UR CLARITY SLIGHTLY CLOUDY (CLEAR); UR COLOR YELLOW (YELLOW); UR GLUCOSE (Dip) NEGATIVE (NEGATIVE); UR KETONES (Dip) NEGATIVE (NEGATIVE); UR LEUKOCYTE ESTERASE (Dip) NEGATIVE Leu/ul (NEGATIVE); UR NITRITE (Dip) NEGATIVE (NEGATIVE); UR RBC 1 /HPF (0-5); UR SPECIFIC GRAVITY (Dip) 1.041 (1.003-1.030); UR TOTAL PROTEIN (Dip) NEGATIVE (NEGATIVE); UR UROBILINOGEN (Dip) NEGATIVE (NEGATIVE)
[2017-03-03 22:18] VITALS: BP 143/65; RESP 20
[2017-03-03] MEDS ORDERED: CEFTRIAXONE 1 GM/50 ML (PMX) 50 ML IVPB SCH (22:30)
[2017-03-04 03:19] VITALS: BP 126/58; RESP 20
[2017-03-04 08:25] VITALS: BP 113/55; RESP 22
[2017-03-04] MEDS: ASPIRIN (EC) 81 MG TAB PO SCH (08:30)
[2017-03-04] MEDS: DOCUSATE SODIUM 100 MG CAP PO SCH ×2 (08:30→20:57)
[2017-03-04] MEDS: FAMOTIDINE 20 MG TAB PO SCH (08:30)
[2017-03-04] MEDS ORDERED: ENOXAPARIN 40 MG/0.4 ML SYG SC SCH (09:00)
[2017-03-04 09:12] LABS: ADD SCAN DIFF NO
[2017-03-04 09:16] LABS: BASOPHILS % 0.4 % (0.0-2.0); EOSINOPHILS # 0.2 10^3/ul (0.0-0.5); EOSINOPHILS % 1.7 % (0.0-7.0); HEMATOCRIT 28.1 % (37.0-47.0); HEMOGLOBIN 9.1 g/dl (12.0-16.0); LYMPHOCYTES # 0.9 10^3/ul (0.8-2.9); LYMPHOCYTES % 8.7 % (15.0-51.0); MEAN CORPUSCULAR HEMOGLOBIN 29.5 pg (29.0-33.0); MEAN CORPUSCULAR HGB CONC 32.4 g/dl (32.0-37.0); MEAN CORPUSCULAR VOLUME 91.2 fl (82.0-101.0); MONOCYTE # 0.7 10^3/ul (0.3-0.9); MONOCYTES % 7.2 % (0.0-11.0); NEUTROPHIL # 8.1 10^3/ul (1.6-7.5); NEUTROPHILS % 81.1 % (39.0-77.0); PLATELET COUNT 408 10^3/UL (140-415); RED BLOOD COUNT 3.08 10^6/ul (4.20-5.40)
[2017-03-04 09:39] LABS: IRON 14 ug/dl (35-150)
[2017-03-04 09:42] LABS: ALBUMIN 3.8 g/dl (3.3-4.9); BILIRUBIN,INDIRECT 0.1 mg/dl (0-1.1); BILIRUBIN,TOTAL 0.1 mg/dl (0.2-1.3); CALCIUM 9.6 mg/dl (8.4-10.2); CHOL/HDL RATIO 7.2 RATIO; CREATININE 0.87 mg/dl (0.44-1.00); MAGNESIUM 1.8 mg/dl (1.7-2.5); POTASSIUM 4.7 mmol/L (3.5-5.1); TOTAL PROTEIN 7.4 g/dl (6.1-8.1)
--- NOTE | 2017-03-04 09:47 | PN ---
Date/Time of Note Date/Time of Note DATE: 03/04/17 TIME: 09:39 Assessment/Plan Lines/Catheters IV Catheter Type (from Nrs): Peripheral IV Assessment/Plan Assessment/Plan [facility] Progress Note Date of Service: 03/04/17 Today's Impression & Plan: Overall doing well post opening of sub-xiphoid midline incision and packing the wound to treat what appears to be a surgical site infection. No intra-abdominal process identified. Previous meena drain site also has a small fluid collection on the CT, but not certain it needs attention at the moment. Rise in Cr noted. Advisable to d/c nephrotoxic agents (e.g. Vanco) to minimize renal damage. Explained this to the patient (no family in the room) and answered all of her questions to the best my ability. She appeared to understand and agreed with the plans. With above assessment, I've recommended the following for today: 1. Keep inhouse today 2. Regular diet 3. D/c Vanco 4. D/c other IV antimicrobials 5. Po Augmentin for 2-3 days 6. Increase activity 7. Increase ICS 8. Labs in am 9. Wet to moist dressing change of the open wound 10. Wound nurse involvement 11. Home health set up 12. Possible d/c home tomorrow if doing ok and above is satisfied Thank you again for your great care of this very pleasant patient and wonderful family. If there are any questions, please feel free to call me at [phone]. TOTAL VISIT TIME: 20 minutes of which more than half was spent in [id number] discussion with the patient, possibly including family, as well as coordination of care between multiple physicians and providers. Disclaimer: Inadvertent spelling or grammatical errors are likely due to EHR/ dictation software use and do not reflect on the overall quality of patient care. Updated Clinical Summary: A very pleasant 81-year-old lady with comorbidities including hypertension, who recently underwent percutaneous cholecystostomy tube placement at the end of October in an outside hospital. The patient was septic and had to be treated in the intensive care unit with bacteremia and eventually stabilized and was discharged home with followup plan to see a surgeon for a laparoscopic cholecystectomy. After evaluation from us, I scheduled the patient for laparoscopic cholecystectomy which was performed at [facility] on 02/16/2017 with finding of chronic cholecystitis. We also removed her percutaneous drain during the same operation. Post op, patient presented with sub-xiphoid midline incision pain. WBC check showed elevation (~ 15). I ordered CT scan of abd/pelvis that showed fluid collection under that site, and a smaller fluid collection under the previous perc-meena drain site. We advised patient to come back to the office on Monday03/03/17. Patient and family came to the ED at [facility] at which point the incision was opened and packed. COMORBIDITIES: 1. Bacteremia end of October 2016, managed at an outside hospital, linked to possible acute cholecystitis requiring percutaneous cholecystostomy tube placement 11/26/2016, associated with sepsis and acute hypoxia and non-STEMI with Escherichia coli urinary tract infection and gram-negative bacteremia. There was also acute renal injury during this episode and syncopal episode without obvious head injury. Hypomagnesemia, hypokalemia and thrombocytopenia was noted. 2. Hypertension. 3. Urinary tract infections. 4. BMI 26.2. 5. Dyslipidemia. 6. Iron deficiency. 7. S/p laparoscopic cholecystectomy and removal of her percutaneous drain at [facility] on 02/16/2017 with finding of severe acute and chronic cholecystitis associated with mucosal ulceration and reactive epithelial changes, cholesterolosis, cholelithiasis (gross only), reactive lymph node and no evidence of malignancy. Subjective: No major events or complaints since incision opening. Feels a bit better. No n/v ; no diarrhea; no sob or cp Objective: Vitals: See below Exam: GENERAL: On exam, the patient was laying in bed and appeared to be comfortable and in no acute distress. ABDOMEN: Soft, nontender and nondistended; dressing on the area of the subxiphoid upper midline incision with purulent staining. Rest of incisions are otherwise clean, dry and intact without any evidence of erythema, edema, discharge, or hernia. Previous perc meena drain site with slight discomfort. There are no peritoneal signs or guarding. SKIN: Skin appears to be pink and feels warm to touch. NEUROLOGIC: Patient is awake, alert, and follows commands appropriately. Exam/Review of Systems Vital Signs Vitals Vital Signs Date Time Temp Pulse Resp B/P Pulse Ox O2 Delivery O2 Flow Rate FiO2 03/04/17 08:25 98.3 70 22 113/55 97 03/03/17 20:53 Room Air 03/03/17 18:12 2 Intake and Output 03/03/17 03/03/17 03/04/17 15:00 23:00 07:00 Intake Total 250 ml Output Total 600 ml Balance -350 ml Results Result Diagram: 03/04/17 0855 03/03/17 1808 JUDY POMPA M.D. Mar 04, 2017 09:47
[2017-03-04 09:49] LABS: TOTAL IRON BINDING CAPACITY 232 ug/dl (241-421)
--- NOTE | 2017-03-04 12:42 | PN ---
Date/Time of Note Date/Time of Note DATE: 03/04/17 TIME: 12:40 Assessment/Plan VTE Prophylaxis VTE Prophylaxis Intervention: LMWH Lines/Catheters IV Catheter Type (from [facility]): Peripheral IV Assessment/Plan Chief Complaint/Hosp Course 1. Surgical site infection. The patient is status post laparoscopic cholecystectomy on 02/16/2017. Continue antimicrobials. Status post evaluation by the surgeon. 2. Essential hypertension. Continue antihypertensives. 3. Dyslipidemia. Fasting lipid panel showing low HDL levels. Low cholesterol diet. 4. Iron deficiency anemia. Continue iron supplements. 5. Acute kidney injury. Resolved. Avoid nephrotoxic medications. 6. Fluids, electrolytes, and nutrition. Low-cholesterol diet. 7. DVT prophylaxis with subcutaneous Lovenox. 8. Gastrointestinal prophylaxis. Histamine 2 receptor blockers. 9. Plan. Continue antimicrobials. Antibiotics has being switched to oral by the surgeon. Await clinical improvement. Case discussed with Dr. Dunlap. Problems: Subjective 24 Hr Interval Summary Free Text/Dictation Denies any pain. Remains afebrile. Exam/Review of Systems Vital Signs Vitals Vital Signs Date Time Temp Pulse Resp B/P Pulse Ox O2 Delivery O2 Flow Rate FiO2 03/04/17 08:25 98.3 70 22 113/55 97 03/03/17 20:53 Room Air 03/03/17 18:12 2 Intake and Output 03/03/17 03/03/17 03/04/17 15:00 23:00 07:00 Intake Total 250 ml Output Total 600 ml Balance -350 ml Exam General: Adequately build 81 year-old female lying in bed in no apparent distress. HEENT: Normocephalic, atraumatic. Eyes: Anicteric sclerae, conjunctivae clear. ENT: Nasal septum midline, oral mucosa moist. Neck supple, no JVD noticed. Respiratory: Bilaterally clear breath sounds. No use of accessory muscles of respiration. No adventitious breath sounds. Cardiovascular: S1, S2 heard. No murmurs or gallops. Abdomen: Soft, nontender, and nondistended. Redness around the subxiphoid incision site. Bowel sounds positive in all 4 quadrants. Genitourinary: Deferred. Extremities: No cyanosis, no clubbing, no edema. Peripheral pulses palpable. Neurologic: Cranial nerves II through XII grossly intact. The patient is awake, alert, and oriented. Skin: Normal skin turgor. No skin rashes. Results Result Diagram: 03/04/17 0855 03/04/17 0855 Results 24 hrs Laboratory Tests Test 03/03/17 18:08 03/03/17 19:41 03/03/17 22:18 03/04/17 08:55 White Blood Count 10.8 10.0 Red Blood Count 3.01 L 3.08 L Hemoglobin 9.0 L 9.1 L Hematocrit 26.7 L 28.1 L Mean Corpuscular Volume 88.7 91.2 Mean Corpuscular Hemoglobin 29.9 29.5 Mean Corpuscular Hemoglobin Concent 33.7 32.4 Red Cell Distribution Width 14.0 14.0 Platelet Count 393 408 Mean Platelet Volume 9.0 9.0 Neutrophils % 78.6 H 81.1 H Lymphocytes % 11.2 L 8.7 L Monocytes % 8.5 7.2 Eosinophils % 0.9 1.7 Basophils % 0.2 0.4 Nucleated Red Blood Cells % 0.0 0.0 Neutrophils # 8.5 H 8.1 H Lymphocytes # 1.2 0.9 Monocytes # 0.9 0.7 Eosinophils # 0.1 0.2 Basophils # 0.0 0.0 Nucleated Red Blood Cells # 0.0 0.0 Prothrombin Time 14.1 Prothrombin Time Ratio 1.1 INR International Normalized Ratio 1.09 Activated Partial Thromboplast Time 28.8 Urine Color YELLOW Urine Clarity SLIGHTLY CLOUDY A Urine pH 5.0 Urine Specific [place] 1.041 H Urine Ketones NEGATIVE Urine Nitrite NEGATIVE Urine Bilirubin NEGATIVE Urine Urobilinogen NEGATIVE Urine Leukocyte Esterase NEGATIVE Urine Microscopic RBC 1 Urine Microscopic WBC 1 Urine Hemoglobin NEGATIVE Urine Glucose NEGATIVE Urine Total Protein NEGATIVE Sodium Level 142 145 H Potassium Level 4.5 4.7 Chloride Level 98 105 Carbon Dioxide Level 27 27 Anion Gap 22 H 18 H Blood Urea Nitrogen 24 H 17 Creatinine 1.18 H 0.87 Glucose Level 112 135 Lactic Acid Level 0.8 0.6 0.7 Calcium Level 9.6 9.6 Total Bilirubin 0.1 L 0.1 L Direct Bilirubin 0.00 0.00 Indirect Bilirubin 0.1 0.1 Aspartate Amino Transf (AST/SGOT) 46 35 Alanine Aminotransferase (ALT/SGPT) 48 43 Alkaline Phosphatase 187 H 166 H Troponin I < 0.012 Total Protein 7.6 7.4 Albumin 4.0 3.8 Globulin 3.60 H Albumin/Globulin Ratio 1.11 Hemoglobin A1c 5.6 Magnesium Level 1.8 Iron Level 14 L Total Iron Binding Capacity 232 L Percent Iron Saturation 6 L Triglycerides Level 96 Cholesterol Level 195 LDL Cholesterol, Calculated 149 HDL Cholesterol 27 L Cholesterol/HDL Ratio 7.2 Medications Medications Current Medications Aspirin (Halfprin) 81 mg DAILY PO Last administered on 03/04/17 08:30; Admin Dose 81 MG; Start 03/04/17 at 09:00 Famotidine (Pepcid) 20 mg DAILY PO Last administered on 03/04/17 08:30; Admin Dose 20 MG; Start 03/04/17 at 09:00 Enoxaparin Sodium (Lovenox) 40 mg DAILY SC Last administered on 03/04/17 08:34 ; Admin Dose 40 MG; Start 03/04/17 at 09:00 Docusate Sodium (Colace) 100 mg BID PO Last administered on 03/04/17 08:30; Admin Dose 100 MG; Start 03/04/17 at 09:00 Acetaminophen (Tylenol Tab) 650 mg Q6H PRN PO PAIN AND OR ELEVATED TEMP; Start 03/03/17 at 22:30 Acetaminophen/ Hydrocodone Bitart ([place] (5/325)) 1 tab Q6H PRN PO pain; Start 03/03/17 at 22:30 Amoxicillin/ Clavulanate Potassium (Augmentin) 500 mg BID PO ; Start 03/04/17 at 21:00 ILNH SALAZAR NP Mar 04, 2017 12:42
[2017-03-04] MEDS: HYDROCHLOROTHIAZIDE 12.5 MG CAP PO SCH (13:47)
[2017-03-04] MEDS: FERROUS SULFATE (EC) 325 MG TAB PO SCH ×2 (13:47→20:57)
[2017-03-04] MEDS: LISINOPRIL 20 MG TAB PO SCH (13:47)
[2017-03-04] MEDS ORDERED: VANCOMYCIN 750 MG in SOD CHLORIDE 0.9% 150 ML IVPB SCH (18:00)
[2017-03-04 19:50] VITALS: BP 152/68; RESP 18
[2017-03-04] MEDS: AMOXICILLIN/CLAV 500 MG TAB PO SCH (20:57)
[2017-03-05] MEDS: ACETAMINOPHEN 325 MG TAB PO PRN (01:59)
[2017-03-05 03:46] VITALS: BP 119/57; RESP 18
[2017-03-05 07:07] LABS: MAGNESIUM 1.7 mg/dl (1.7-2.5); PHOSPHORUS 4.7 mg/dl (2.5-4.9)
[2017-03-05 07:59] VITALS: BP 132/59; RESP 18
[2017-03-05 08:31] LABS: ADD SCAN DIFF NO
[2017-03-05 08:36] LABS: BASOPHILS % 0.3 % (0.0-2.0); EOSINOPHILS # 0.2 10^3/ul (0.0-0.5); HEMATOCRIT 25.6 % (37.0-47.0); HEMOGLOBIN 8.4 g/dl (12.0-16.0); LYMPHOCYTES # 1.5 10^3/ul (0.8-2.9); LYMPHOCYTES % 15.1 % (15.0-51.0); MEAN CORPUSCULAR HEMOGLOBIN 29.5 pg (29.0-33.0); MEAN CORPUSCULAR HGB CONC 32.8 g/dl (32.0-37.0); MEAN CORPUSCULAR VOLUME 89.8 fl (82.0-101.0); MEAN PLATELET VOLUME 9.3 fl (7.4-10.4); MONOCYTES % 9.7 % (0.0-11.0); NEUTROPHIL # 7.3 10^3/ul (1.6-7.5); NEUTROPHILS % 71.5 % (39.0-77.0); PLATELET COUNT 415 10^3/UL (140-415); RED BLOOD COUNT 2.85 10^6/ul (4.20-5.40); RED CELL DISTRIBUTION WIDTH 13.5 % (11.5-14.5); WHITE BLOOD COUNT 10.1 10^3/ul (4.8-10.8)
[2017-03-05 09:06] LABS: CALCIUM 9.5 mg/dl (8.4-10.2); CREATININE 0.81 mg/dl (0.44-1.00); POTASSIUM 4.1 mmol/L (3.5-5.1)
[2017-03-05] MEDS ORDERED: BISACODYL (EC) 5 MG TAB PO ONE (09:30)
[2017-03-05] MEDS ORDERED: BISACODYL (EC) 5 MG TAB PO PRN (09:30)
--- NOTE | 2017-03-05 09:40 | PN ---
Date/Time of Note Date/Time of Note DATE: 03/05/17 TIME: 09:30 Assessment/Plan VTE Prophylaxis VTE Prophylaxis Intervention: ambulation, SCD's Lines/Catheters IV Catheter Type (from Nrs): Peripheral IV Assessment/Plan Chief Complaint/Hosp Course 1. Abdominal wall wound infection most likely surgical site infection. -> Surgery evaluation appreciated. The patient is status post opening of sub -xiphoid midline incision and packing of wound. -> Antibiotic management per surgery recommendation. Final wound cultures are pending. -> Awaiting wound care consult. 2. Essential hypertension. Stable. Continue antihypertensives. 3. Dyslipidemia. Fasting lipid panel showing low HDL levels. Low cholesterol diet. 4. Iron deficiency anemia. Continue iron supplements. 5. Acute kidney injury. Resolved. Avoid nephrotoxic medications. 6. Fluids, electrolytes, and nutrition. Low-cholesterol diet. 7. DVT prophylaxis with subcutaneous Lovenox. 8. Gastrointestinal prophylaxis. Histamine 2 receptor blockers. 9. Plan. Pending wound care consult. Patient needs a 3 day duration of Augmentin per surgery recommendation. Case management for home health for wound care. Once this is arranged, patient may be discharged home tomorrow. Case discussed with Dr. Dunlap. Problems: Subjective 24 Hr Interval Summary Free Text/Dictation No overnight episodes. Patient remains afebrile. Awaiting for wound care consult. Exam/Review of Systems Vital Signs Vitals Vital Signs Date Time Temp Pulse Resp B/P Pulse Ox O2 Delivery O2 Flow Rate FiO2 03/05/17 07:59 97.5 71 18 132/59 98 03/03/17 20:53 Room Air 03/03/17 18:12 2 Intake and Output 03/04/17 03/04/17 03/05/17 15:00 23:00 07:00 Intake Total 1200 ml 250 ml Balance 1200 ml 250 ml Exam General: Elderly female, not in any acute distress . HEENT: Normocephalic, Atraumatic, No laceration or hematoma; Eyes: PEERL, Conjunctiva clear, Anicteric sclera Neck: Supple without any lymphadenopathy, nontender, no JVD, no carotid bruits, trachea midline, no thyromegaly Cardiac: S1, S2 auscultated, regular rhythm and rate, no mumurs or gallop Pulmonary: Normal respiratory effort. Chest clear to auscultation bilaterally, no adventitious breath sounds GI: Patient with multiple wounds on abdomen. Dressing on mid abdomen is intact. There is purulent drainage from right upper abdominal incision. Otherwise soft, non tender, non- distended, no masses, no rebound tenderness or guarding. Bowel sounds active on all four quadrants Genitourinary: Deferred Extremities: No cyanosis, clubbing, or edema. Pulses [2+] bilaterally. Full ROM on all four extremities. No focal weakness appreciated. Neurologic: Alert to person, place, time, and situation. Affect appropriate, intact sensation. Skin: Clean,dry, and intact. No ecchymosis, no rashes, or lesions Results Result Diagram: 03/05/1752403/05/17524 Results 24 hrs Laboratory Tests Test 03/05/17 05:25 White Blood Count 10.1 Red Blood Count 2.85 L Hemoglobin 8.4 L Hematocrit 25.6 L Mean Corpuscular Volume 89.8 Mean Corpuscular Hemoglobin 29.5 Mean Corpuscular Hemoglobin Concent 32.8 Red Cell Distribution Width 13.5 Platelet Count 415 Mean Platelet Volume 9.3 Neutrophils % 71.5 Lymphocytes % 15.1 Monocytes % 9.7 Eosinophils % 2.0 Basophils % 0.3 Nucleated Red Blood Cells % 0.0 Neutrophils # 7.3 Lymphocytes # 1.5 Monocytes # 1.0 H Eosinophils # 0.2 Basophils # 0.0 Nucleated Red Blood Cells # 0.0 Sodium Level 138 Potassium Level 4.1 Chloride Level 101 Carbon Dioxide Level 27 Anion Gap 14 Blood Urea Nitrogen 17 Creatinine 0.81 Glucose Level 91 # Calcium Level 9.5 Phosphorus Level 4.7 Magnesium Level 1.7 Medications Medications Current Medications Aspirin (Halfprin) 81 mg DAILY PO Last administered on 03/04/17 08:30; Admin Dose 81 MG; Start 03/04/17 at 09:00 Famotidine (Pepcid) 20 mg DAILY PO Last administered on 03/04/17 08:30; Admin Dose 20 MG; Start 03/04/17 at 09:00 Enoxaparin Sodium (Lovenox) 40 mg DAILY SC Last administered on 03/04/17 08:34 ; Admin Dose 40 MG; Start 03/04/17 at 09:00 Docusate Sodium (Colace) 100 mg BID PO Last administered on 03/04/17 20:57; Admin Dose 100 MG; Start 03/04/17 at 09:00 Acetaminophen (Tylenol Tab) 650 mg Q6H PRN PO PAIN AND OR ELEVATED TEMP Last administered on 03/05/17 01:59; Admin Dose 650 MG; Start 03/03/17 at 22:30 Acetaminophen/ Hydrocodone Bitart ([place] (5/325)) 1 tab Q6H PRN PO pain; Start 03/03/17 at 22:30 Amoxicillin/ Clavulanate Potassium (Augmentin) 500 mg BID PO Last administered on 03/04/17 20:57; Admin Dose 500 MG; Start 03/04/17 at 21:00 Hydrochlorothiazide (Hydrochlorothiazide) 12.5 mg DAILY PO Last administered on 03/04/17 13:47; Admin Dose 12.5 MG; Start 03/04/17 at 14:00 Lisinopril (Zestril) 40 mg DAILY PO Last administered on 03/04/17 13:47; Admin Dose 40 MG; Start 03/04/17 at 14:00 Ferrous Sulfate (Ferrous Sulfate (Ec)) 325 mg BID PO Last administered on 20:57; Admin Dose 325 MG; Start 03/04/17 at 14:00 NELIDA MARTE NP Mar 05, 2017 09:40
[2017-03-05] MEDS: AMOXICILLIN/CLAV 500 MG TAB PO SCH ×2 (09:44→21:51)
[2017-03-05] MEDS: FERROUS SULFATE (EC) 325 MG TAB PO SCH ×2 (09:44→21:51)
[2017-03-05] MEDS: ASPIRIN (EC) 81 MG TAB PO SCH (09:45)
[2017-03-05] MEDS: HYDROCHLOROTHIAZIDE 12.5 MG CAP PO SCH (09:45)
[2017-03-05] MEDS: DOCUSATE SODIUM 100 MG CAP PO SCH ×2 (09:45→21:51)
[2017-03-05] MEDS: HYDROCODONE/APAP (5/325) TAB PO PRN ×2 (09:45→19:32)
[2017-03-05] MEDS: FAMOTIDINE 20 MG TAB PO SCH (09:45)
[2017-03-05] MEDS: LISINOPRIL 20 MG TAB PO SCH (09:46)
--- NOTE | 2017-03-05 12:14 | PN ---
Date/Time of Note Date/Time of Note DATE: 03/05/17 TIME: 12:11 Assessment/Plan Lines/Catheters IV Catheter Type (from Nrs): Peripheral IV Assessment/Plan Assessment/Plan [facility] Progress Note Date of Service: 03/05/17 Today's Impression & Plan: Overall doing well post opening of sub-xiphoid midline incision and packing the wound to treat what appears to be a surgical site infection. The previous drain site not surprisingly also draining pus and will need to be packed. No intra- abdominal process identified. Explained this to the patient (no family in the room) and answered all of her questions to the best my ability. She appeared to understand and agreed with the plans. With above assessment, I've recommended the following for today: 1. Keep inhouse today 2. Regular diet 3. Cont oral antimicrobials. 4. pack both wounds with TID w2m dressing changes 5. Increase activity 6. Increase ICS 7. Labs in am 8. Home health set up 9. Possible d/c home today or tomorrow if doing ok and above is satisfied Thank you again for your great care of this very pleasant patient and wonderful family. If there are any questions, please feel free to call me at [phone]. TOTAL VISIT TIME: 20 minutes of which more than half was spent in [id number] discussion with the patient, possibly including family, as well as coordination of care between multiple physicians and providers. Disclaimer: Inadvertent spelling or grammatical errors are likely due to EHR/ dictation software use and do not reflect on the overall quality of patient care. Updated Clinical Summary: A very pleasant 81-year-old lady with comorbidities including hypertension, who recently underwent percutaneous cholecystostomy tube placement at the end of October in an outside hospital. The patient was septic and had to be treated in the intensive care unit with bacteremia and eventually stabilized and was discharged home with followup plan to see a surgeon for a laparoscopic cholecystectomy. After evaluation from us, I scheduled the patient for laparoscopic cholecystectomy which was performed at [facility] on 02/16/2017 with finding of chronic cholecystitis. We also removed her percutaneous drain during the same operation. Post op, patient presented with sub-xiphoid midline incision pain. WBC check showed elevation (~ 15). I ordered CT scan of abd/pelvis that showed fluid collection under that site, and a smaller fluid collection under the previous perc-meena drain site. We advised patient to come back to the office on Monday03/03/17. Patient and family came to the ED at [facility] at which point the incision was opened and packed. COMORBIDITIES: 1. Bacteremia end of October 2016, managed at an outside hospital, linked to possible acute cholecystitis requiring percutaneous cholecystostomy tube placement 11/26/2016, associated with sepsis and acute hypoxia and non-STEMI with Escherichia coli urinary tract infection and gram-negative bacteremia. There was also acute renal injury during this episode and syncopal episode without obvious head injury. Hypomagnesemia, hypokalemia and thrombocytopenia was noted. 2. Hypertension. 3. Urinary tract infections. 4. BMI 26.2. 5. Dyslipidemia. 6. Iron deficiency. 7. S/p laparoscopic cholecystectomy and removal of her percutaneous drain at [facility] on 02/16/2017 with finding of severe acute and chronic cholecystitis associated with mucosal ulceration and reactive epithelial changes, cholesterolosis, cholelithiasis (gross only), reactive lymph node and no evidence of malignancy. Subjective: No major events or complaints since incision opening. Old drain site also draining pus. Feels improved. No n/v; no diarrhea; no sob or cp Objective: Vitals: See below Exam: GENERAL: On exam, the patient was laying in bed and appeared to be comfortable and in no acute distress. ABDOMEN: Soft, nontender and nondistended; dressing on the area of the subxiphoid upper midline incision clean. Old drain site with minimal purulent drainage. Rest of incisions are otherwise clean, dry and intact without any evidence of erythema, edema, discharge, or hernia. There are no peritoneal signs or guarding. SKIN: Skin appears to be pink and feels warm to touch. NEUROLOGIC: Patient is awake, alert, and follows commands appropriately. Exam/Review of Systems Vital Signs Vitals Vital Signs Date Time Temp Pulse Resp B/P Pulse Ox O2 Delivery O2 Flow Rate FiO2 03/05/17 07:59 97.5 71 18 132/59 98 03/03/17 20:53 Room Air 03/03/17 18:12 2 Intake and Output 03/04/17 03/04/17 03/05/17 15:00 23:00 07:00 Intake Total 1200 ml 250 ml Balance 1200 ml 250 ml Results Result Diagram: 03/05/17 0525 03/05/17 0525 JUDY POMPA M.D. Mar 05, 2017 12:14
[2017-03-05 20:02] VITALS: BP 156/66; RESP 20
[2017-03-06 02:12] VITALS: BP 112/56; RESP 18
[2017-03-06 07:30] VITALS: BP 133/58; RESP 18
[2017-03-06 08:22] LABS: ADD SCAN DIFF NO
[2017-03-06 08:40] LABS: BASOPHILS % 0.5 % (0.0-2.0); EOSINOPHILS # 0.2 10^3/ul (0.0-0.5); EOSINOPHILS % 3.2 % (0.0-7.0); HEMATOCRIT 28.3 % (37.0-47.0); HEMOGLOBIN 9.2 g/dl (12.0-16.0); LYMPHOCYTES # 1.5 10^3/ul (0.8-2.9); LYMPHOCYTES % 20.4 % (15.0-51.0); MEAN CORPUSCULAR HGB CONC 32.5 g/dl (32.0-37.0); MEAN CORPUSCULAR VOLUME 89.3 fl (82.0-101.0); MEAN PLATELET VOLUME 9.2 fl (7.4-10.4); MONOCYTE # 0.7 10^3/ul (0.3-0.9); MONOCYTES % 8.8 % (0.0-11.0); NEUTROPHIL # 4.7 10^3/ul (1.6-7.5); NEUTROPHILS % 63.2 % (39.0-77.0); PLATELET COUNT 444 10^3/UL (140-415); RED BLOOD COUNT 3.17 10^6/ul (4.20-5.40); RED CELL DISTRIBUTION WIDTH 13.4 % (11.5-14.5); WHITE BLOOD COUNT 7.4 10^3/ul (4.8-10.8)
[2017-03-06 08:47] LABS: CALCIUM 9.9 mg/dl (8.4-10.2); CREATININE 0.82 mg/dl (0.44-1.00); POTASSIUM 4.2 mmol/L (3.5-5.1)
[2017-03-06] MEDS: AMOXICILLIN/CLAV 500 MG TAB PO SCH (08:58)
[2017-03-06] MEDS: FAMOTIDINE 20 MG TAB PO SCH (08:58)
[2017-03-06] MEDS: DOCUSATE SODIUM 100 MG CAP PO SCH ×3 (08:58→22:07)
[2017-03-06] MEDS: ASPIRIN (EC) 81 MG TAB PO SCH (08:58)
[2017-03-06] MEDS: HYDROCHLOROTHIAZIDE 12.5 MG CAP PO SCH (08:58)
[2017-03-06] MEDS: FERROUS SULFATE (EC) 325 MG TAB PO SCH ×2 (08:58→22:08)
[2017-03-06] MEDS: LISINOPRIL 20 MG TAB PO SCH (08:58)
[2017-03-06] MEDS ORDERED: HYDROmorphONE 1 MG/ML SYG IV STA (10:55)
[2017-03-06] MEDS ORDERED: LIDOCAINE 2% JELLY 5 ML TOP ONE (11:30)
--- NOTE | 2017-03-06 13:30 | PN ---
Date/Time of Note Date/Time of Note DATE: 03/06/17 TIME: 13:26 Assessment/Plan VTE Prophylaxis VTE Prophylaxis Intervention: SCD's Lines/Catheters [facility] Saline Lock Assessment/Plan Chief Complaint/Hosp Course 1. Surgical site infection. The patient is status post laparoscopic cholecystectomy on 02/16/2017. Continue antimicrobials. Status post opening of subxiphoid incision and placement of packing. Wound culture positive for MRSA. Will change antibiotics as per sensitivities. 2. Essential hypertension. Continue antihypertensives. 3. Dyslipidemia. Fasting lipid panel showing low HDL levels. Low cholesterol diet. 4. Iron deficiency anemia. Continue iron supplements. 5. Acute kidney injury. Resolved. Avoid nephrotoxic medications. 6. Fluids, electrolytes, and nutrition. Low-cholesterol diet. 7. DVT prophylaxis. B/L SCDs. 8. Gastrointestinal prophylaxis. Histamine 2 receptor blockers. 9. Plan. Await surgical clearance before discharge on oral antibiotics. Send stool studies for underlying diarrhea. Case discussed with Dr. Wilson. Problems: Subjective 24 Hr Interval Summary Free Text/Dictation Patient has been complaining of diarrhea. Exam/Review of Systems Vital Signs Vitals Vital Signs Date Time Temp Pulse Resp B/P Pulse Ox O2 Delivery O2 Flow Rate FiO2 03/06/17 07:30 97.9 59 18 133/58 99 03/03/17 20:53 Room Air 03/03/17 18:12 2 Intake and Output 03/05/17 03/05/17 03/06/17 15:00 23:00 07:00 Intake Total 920 ml 300 ml Output Total 400 ml Balance 920 ml -100 ml Exam General: Adequately build 81 year-old female lying in bed in no apparent distress. HEENT: Normocephalic, atraumatic. Eyes: Anicteric sclerae, conjunctivae clear. ENT: Nasal septum midline, oral mucosa moist. Neck supple, no JVD noticed. Respiratory: Bilaterally clear breath sounds. No use of accessory muscles of respiration. No adventitious breath sounds. Cardiovascular: S1, S2 heard. No murmurs or gallops. Abdomen: Soft, nontender, and nondistended. Redness around the subxiphoid incision site. Subxiphoid incision dressing. Bowel sounds positive in all 4 quadrants. Genitourinary: Deferred. Extremities: No cyanosis, no clubbing, no edema. Peripheral pulses palpable. Neurologic: Cranial nerves II through XII grossly intact. The patient is awake, alert, and oriented. Skin: Normal skin turgor. No skin rashes. Results Result Diagram: 03/06/17 0710 03/06/17 0710 Results 24 hrs Laboratory Tests Test 03/06/17 07:10 White Blood Count 7.4 # Red Blood Count 3.17 L Hemoglobin 9.2 L Hematocrit 28.3 L Mean Corpuscular Volume 89.3 Mean Corpuscular Hemoglobin 29.0 Mean Corpuscular Hemoglobin Concent 32.5 Red Cell Distribution Width 13.4 Platelet Count 444 H Mean Platelet Volume 9.2 Neutrophils % 63.2 Lymphocytes % 20.4 Monocytes % 8.8 Eosinophils % 3.2 Basophils % 0.5 Nucleated Red Blood Cells % 0.0 Neutrophils # 4.7 Lymphocytes # 1.5 Monocytes # 0.7 Eosinophils # 0.2 Basophils # 0.0 Nucleated Red Blood Cells # 0.0 Sodium Level 140 Potassium Level 4.2 Chloride Level 99 Carbon Dioxide Level 30 Anion Gap 15 Blood Urea Nitrogen 14 Creatinine 0.82 Glucose Level 86 Calcium Level 9.9 Medications Medications Current Medications Aspirin (Halfprin) 81 mg DAILY PO Last administered on 03/06/17 08:58; Admin Dose 81 MG; Start 03/04/17 at 09:00 Famotidine (Pepcid) 20 mg DAILY PO Last administered on 03/06/17 08:58; Admin Dose 20 MG; Start 03/04/17 at 09:00 Docusate Sodium (Colace) 100 mg BID PO Last administered on 03/06/17 08:58; Admin Dose 100 MG; Start 03/04/17 at 09:00 Acetaminophen (Tylenol Tab) 650 mg Q6H PRN PO PAIN AND OR ELEVATED TEMP Last administered on 03/05/17 01:59; Admin Dose 650 MG; Start 03/03/17 at 22:30 Acetaminophen/ Hydrocodone Bitart ([place] (5/325)) 1 tab Q6H PRN PO pain Last administered on 03/05/17 19:32; Admin Dose 1 TAB; Start 03/03/17 at 22:30 Amoxicillin/ Clavulanate Potassium (Augmentin) 500 mg BID PO Last administered on 03/06/17 08:58; Admin Dose 500 MG; Start 03/04/17 at 21:00 Hydrochlorothiazide (Hydrochlorothiazide) 12.5 mg DAILY PO Last administered on 03/06/17 08:58; Admin Dose 12.5 MG; Start 03/04/17 at 14:00 Lisinopril (Zestril) 40 mg DAILY PO Last administered on 03/06/17 08:58; Admin Dose 40 MG; Start 03/04/17 at 14:00 Ferrous Sulfate (Ferrous Sulfate (Ec)) 325 mg BID PO Last administered on 08:58; Admin Dose 325 MG; Start 03/04/17 at 14:00 Bisacodyl (Dulcolax) 10 mg DAILY PRN PO CONSTIPATION; Start 03/05/17 at 09:30 LINH SALAZAR NP Mar 06, 2017 13:30
--- NOTE | 2017-03-06 15:47 | PN ---
Date/Time of Note Date/Time of Note DATE: 03/06/17 TIME: 15:43 Assessment/Plan Lines/Catheters IV Catheter Type (from Nrsg): Saline Lock Assessment/Plan Assessment/Plan [facility] Progress Note Date of Service: 03/06/17 Today's Impression & Plan: Overall has remained stable. Since the wounds had already closed from time of opening in the emergency department, I did a bedside opening of the wounds with scissors and administration of extra dose of IV medication for pain (as part of patient's as needed order set) as well as application of lidocaine jelly to the subxiphoid upper midline incision site as well as the prior percutaneous drain site, after which I used Nu Gauze dressing to pack the wounds without any difficulties. This was done in conjunction with the wound nurses and the plan is to do wet to moist 3 times daily dressing changes while in-house, and set up the patient for home health nurse visit to do at least once a day with to moist dressing changes and close outpatient follow-up with me. With adequate care, the patient's wound infections should heal without any more difficulties. No indication for acute surgical intervention. Discussed with patient and answered all questions. With above assessment, I've recommended the following for today: 1. Keep inhouse today 2. Regular diet 3. Cont oral antimicrobials. 4. pack both wounds with TID w2m dressing changes 5. Increase activity 6. Increase ICS 7. Labs in am 8. Home health set up 9. Possible d/c home tomorrow if doing ok and above is satisfied Thank you again for your great care of this very pleasant patient and wonderful family. If there are any questions, please feel free to call me at [phone]. Disclaimer: Inadvertent spelling or grammatical errors are likely due to EHR/ dictation software use and do not reflect on the overall quality of patient care. Updated Clinical Summary: A very pleasant 81-year-old lady with comorbidities including hypertension, who recently underwent percutaneous cholecystostomy tube placement at the end of October in an outside hospital. The patient was septic and had to be treated in the intensive care unit with bacteremia and eventually stabilized and was discharged home with followup plan to see a surgeon for a laparoscopic cholecystectomy. After evaluation from us, I scheduled the patient for laparoscopic cholecystectomy which was performed at [facility] on 02/16/2017 with finding of chronic cholecystitis. We also removed her percutaneous drain during the same operation. Post op, patient presented with sub-xiphoid midline incision pain. WBC check showed elevation (~ 15). I ordered CT scan of abd/pelvis that showed fluid collection under that site, and a smaller fluid collection under the previous perc-meena drain site. We advised patient to come back to the office on Monday03/03/17. Patient and family came to the ED at [facility] at which point the incision was opened and packed. COMORBIDITIES: 1. Bacteremia end of October 2016, managed at an outside hospital, linked to possible acute cholecystitis requiring percutaneous cholecystostomy tube placement 11/26/2016, associated with sepsis and acute hypoxia and non-STEMI with Escherichia coli urinary tract infection and gram-negative bacteremia. There was also acute renal injury during this episode and syncopal episode without obvious head injury. Hypomagnesemia, hypokalemia and thrombocytopenia was noted. 2. Hypertension. 3. Urinary tract infections. 4. BMI 26.2. 5. Dyslipidemia. 6. Iron deficiency. 7. S/p laparoscopic cholecystectomy and removal of her percutaneous drain at [facility] on 02/16/2017 with finding of severe acute and chronic cholecystitis associated with mucosal ulceration and reactive epithelial changes, cholesterolosis, cholelithiasis (gross only), reactive lymph node and no evidence of malignancy. Subjective: No major events or complaints. Old drain site and upper midline subxiphoid wound sites essentially closed without any further drainage of pus. Feels improved. No n/v; no diarrhea; no sob or cp Objective: Vitals: See below Exam: GENERAL: On exam, the patient was laying in bed and appeared to be comfortable and in no acute distress. ABDOMEN: Soft, nontender and nondistended; dressing on the area of the subxiphoid upper midline incision clean and removed. Old drain site with no purulent drainage. Rest of incisions are otherwise clean, dry and intact without any evidence of erythema, edema, discharge, or hernia. There are no peritoneal signs or guarding. After opening both wounds, slight amount of pus was expressed from both. Packing was done and patient tolerated this well. SKIN: Skin appears to be pink and feels warm to touch. NEUROLOGIC: Patient is awake, alert, and follows commands appropriately. Exam/Review of Systems Vital Signs Vitals Vital Signs Date Time Temp Pulse Resp B/P Pulse Ox O2 Delivery O2 Flow Rate FiO2 03/06/17 07:30 97.9 59 18 133/58 99 03/03/17 20:53 Room Air 03/03/17 18:12 2 Intake and Output 03/05/17 03/05/17 03/06/17 15:00 23:00 07:00 Intake Total 920 ml 300 ml Output Total 400 ml Balance 920 ml -100 ml Results Result Diagram: 03/06/17 0710 03/06/17 0710 JUDY POMPA M.D. Mar 06, 2017 15:47
[2017-03-06 20:54] VITALS: BP 147/68; RESP 16
[2017-03-06] MEDS: HYDROCODONE/APAP (5/325) TAB PO PRN (22:08)
[2017-03-06] MEDS: DOXYCYCLINE 100 MG in SOD CHLORIDE 0.9% 250 ML IVPB SCH (22:24)
[2017-03-07] MEDS: ACETAMINOPHEN 325 MG TAB PO PRN (00:01)
[2017-03-07 03:05] VITALS: BP 123/59; RESP 16
[2017-03-07] MEDS: HYDROCODONE/APAP (5/325) TAB PO PRN (05:41)
[2017-03-07 06:30] LABS: ADD SCAN DIFF NO
[2017-03-07 06:46] LABS: BASOPHIL # 0.1 10^3/ul (0.0-0.1); BASOPHILS % 0.8 % (0.0-2.0); EOSINOPHILS # 0.2 10^3/ul (0.0-0.5); EOSINOPHILS % 2.1 % (0.0-7.0); HEMATOCRIT 32.7 % (37.0-47.0); HEMOGLOBIN 10.5 g/dl (12.0-16.0); LYMPHOCYTES # 2.8 10^3/ul (0.8-2.9); LYMPHOCYTES % 27.2 % (15.0-51.0); MEAN CORPUSCULAR HEMOGLOBIN 28.8 pg (29.0-33.0); MEAN CORPUSCULAR HGB CONC 32.1 g/dl (32.0-37.0); MEAN CORPUSCULAR VOLUME 89.8 fl (82.0-101.0); MONOCYTE # 0.8 10^3/ul (0.3-0.9); MONOCYTES % 7.8 % (0.0-11.0); NEUTROPHIL # 5.9 10^3/ul (1.6-7.5); NEUTROPHILS % 57.5 % (39.0-77.0); PLATELET COUNT 543 10^3/UL (140-415); RED BLOOD COUNT 3.64 10^6/ul (4.20-5.40); RED CELL DISTRIBUTION WIDTH 13.2 % (11.5-14.5); WHITE BLOOD COUNT 10.4 10^3/ul (4.8-10.8)
[2017-03-07 07:08] LABS: CALCIUM 10.4 mg/dl (8.4-10.2); CREATININE 0.78 mg/dl (0.44-1.00); POTASSIUM 4.8 mmol/L (3.5-5.1)
[2017-03-07 07:26] LABS: MAGNESIUM 1.6 mg/dl (1.7-2.5); PHOSPHORUS 4.2 mg/dl (2.5-4.9)
[2017-03-07 07:28] VITALS: BP 136/66; RESP 20
[2017-03-07] MEDS: LISINOPRIL 20 MG TAB PO SCH (09:43)
[2017-03-07] MEDS: DOCUSATE SODIUM 100 MG CAP PO SCH (09:43)
[2017-03-07] MEDS: FAMOTIDINE 20 MG TAB PO SCH (09:43)
[2017-03-07] MEDS: ASPIRIN (EC) 81 MG TAB PO SCH (09:43)
[2017-03-07] MEDS: FERROUS SULFATE (EC) 325 MG TAB PO SCH (09:43)
[2017-03-07] MEDS: HYDROCHLOROTHIAZIDE 12.5 MG CAP PO SCH (09:44)
[2017-03-07] MEDS: DOXYCYCLINE 100 MG in SOD CHLORIDE 0.9% 250 ML IVPB SCH (10:52)
--- NOTE | 2017-03-07 11:52 | PDOCDIS ---
Discharge Instructions DIAGNOSIS Discharge Diagnosis Abdominal wall cellulitis. CONDITION Patient Condition: Stable HOME CARE INSTRUCTIONS: Special Diet: low cholesterol, low fat OTHER ORDERS: Other Orders: 1. Complete the course of antibiotics. 2. Low-cholesterol diet. 3. Change abdominal dressings as per instructions. 4. Follow-up with Dr. Christy in 1 week. LNIH SALAZAR NP Mar 07, 2017 11:52
[2017-03-07] MEDS ORDERED: DOXY100T20 PO (11:55)
[2017-03-07] MEDS ORDERED: MAGNESIUM CHLORIDE (SR) 64 MG TAB PO SCH (12:00)
--- NOTE | 2017-03-07 12:06 | DS ---
Date/Time of Note Date/Time of Note DATE: 03/07/17 TIME: 12:04 Discharge Summary Admission/Discharge Info Admit Date/Time Mar 03, 2017 at 18:04 Discharge Date/Time Discharge Diagnosis 1. Surgical site infection. 2. Essential hypertension. 3. Dyslipidemia. 4. Iron deficiency anemia. 5. Acute kidney injury. Resolved. Patient Condition: Stable Consults 1. Wong Christy MD, General Surgery. Procedures CXR IMPRESSION: Mild left lung base atelectasis versus airspace disease. Hx of Present Illness 81-year-old female who was sent to the emergency room from her surgeon's office where she had presented with purulent discharge from the recent surgical wound. Patient was seen in this hospital a couple of weeks ago and managed for cholecystitis complicated by urinary tract infection and bacteremia, she underwent a laparoscopic cholecystectomy February 16, 2017.She was seen March 01, 2017 in follow-up and at that time her wound incisions seem to be clean and dry without any bruising. She however did have some pain and discomfort in the subxiphoid incision. She was supposed to obtain further imaging and testing for that however for different reasons this was not done. Patient continued to have pain then today developed purulent discharge at the site. She went to see her surgeon and was referred from the office to the emergency room. She has not had any fever, she has felt sick and had some nausea but no actual vomiting , she denies dysuria or hematuria. She has no chest pain no palpitations, no syncopal episodes, no shortness of breath. Hospital Course The patient was admitted to inpatient medical surgical floor. Surgical consult was called. Pancultures were ordered. The patient's abdominal wound culture showed positive MRSA. The patient was initially started on IV antibiotics including IV vancomycin which was later switched to oral Augmentin as per the surgeon because of worsening renal function. But when the wound cultures came it showed MRSA that was resistant to amoxicillin and clavulanic acid. Therefore , the patient was switched to doxycycline based on sensitivity studies. The patient had no evidence of any septic shock. Patient is status post opening of subxiphoid incision and placement of packing. The patient's wound dressings were being changed to 3 times a day. Home health was arranged for changing the dressings. The patient has underlying essential hypertension. She was maintained on antihypertensives for the same. Patient has underlying dyslipidemia. The patient was maintained on low-cholesterol diet. The patient has underlying iron deficiency anemia. The patient was maintained on iron supplements for the same. The patient also had some diarrhea towards the end of the hospital course. This could have been most probably antibiotic induced. The patient's stool for C. difficile was negative. Patient was cleared by consultants to be discharged home. Patient remained afebrile. Patient has no leukocytosis. Discharge Instructions 1. Complete the course of antibiotics. 2. Low-cholesterol diet. 3. Change abdominal dressings as per instructions. 4. Follow-up with Dr. Christy in 1 week. The patient verbalized understanding of her discharge instructions. At this time I would like to thank for seeing the patient and providing clinical recommendations. The case and management of this patient was discussed with Dr. Wilson. Home Meds Active Scripts Doxycycline Hyclate* (Doxycycline Hyclate*) 100 Mg Tablet., 100 MG PO BID for 10 Days, TAB Prov:LINH SALAZAR PAIN MEDICINE PHYSICIAN 03/07/17 Reported Medications Hydrochlorothiazide* (Hydrochlorothiazide*) 12.5 Mg Tablet, 12.5 MG PO DAILY, # 30 TAB 03/03/17 Lisinopril* (Lisinopril*) 40 Mg Tablet, 40 MG PO DAILY, #30 TAB 01/09/17 Aspirin (Low Dose Aspirin) 81 Mg Tablet., 81 MG PO DAILY, #30 TAB 01/09/17 Discontinued Reported Medications Ferrous Sulfate* (Ferrous Sulfate*) 325 Mg Tabec, 325 MG PO DAILY, TAB 01/09/17 Follow-up Plan Follow-up with Dr. Christy in 7 days. Primary Care Provider Domingo Yusuf Time spent on discharge: > 30 minutes Pending Labs Laboratory Tests Test 03/07/17 05:40 White Blood Count 10.410^3/ul (4.8-10.8) Red Blood Count 3.6410^6/ul (4.20-5.40) Hemoglobin 10.5g/dl (12.0-16.0) Hematocrit 32.7% (37.0-47.0) Mean Corpuscular Volume 89.8fl (82.0-101.0) Mean Corpuscular Hemoglobin 28.8pg (29.0-33.0) Mean Corpuscular Hemoglobin Concent 32.1g/dl (32.0-37.0) Red Cell Distribution Width 13.2% (11.5-14.5) Platelet Count 23782^3/UL (140-415) Mean Platelet Volume 9.0fl (7.4-10.4) Neutrophils % 57.5% (39.0-77.0) Lymphocytes % 27.2% (15.0-51.0) Monocytes % 7.8% (0.0-11.0) Eosinophils % 2.1% (0.0-7.0) Basophils % 0.8% (0.0-2.0) Nucleated Red Blood Cells % 0.0/100WBC (0.0-0.0) Neutrophils # 5.910^3/ul (1.6-7.5) Lymphocytes # 2.810^3/ul (0.8-2.9) Monocytes # 0.810^3/ul (0.3-0.9) Eosinophils # 0.210^3/ul (0.0-0.5) Basophils # 0.110^3/ul (0.0-0.1) Nucleated Red Blood Cells # 0.010^3/ul (0.0-0.0) Sodium Level 142mmol/L (135-144) Potassium Level 4.8mmol/L (3.5-5.1) Chloride Level 98mmol/L (97-110) Carbon Dioxide Level 30mmol/L (21-31) Anion Gap 19 (8-16) Blood Urea Nitrogen 14mg/dl (7-20) Creatinine 0.78mg/dl (0.44-1.00) Glucose Level 89mg/dl (70-220) Calcium Level 10.4mg/dl (8.4-10.2) Phosphorus Level 4.2mg/dl (2.5-4.9) Magnesium Level 1.6mg/dl (1.7-2.5) Microbiology Date/Time Source Procedure Growth Status 03/06/17 18:30 Feces Clostridium difficile Toxin Assay - Final Complete LINH SALAZAR NP Mar 07, 2017 12:05 LINH SALAZAR NP Mar 07, 2017 12:05
[2017-03-07 13:00] VITALS: BP 135/66; PULSE 56
== END 2017-03-07 14:30 | disposition home health service (06) | DRG 863 ==
LOC: E/R 17:15 → MS2 18:04
PROVIDERS: ADMIT Hospitalist; ATTEND Hospitalist
DX: T81.4XXA Infection following a procedure, initial encounter (principal); N17.9 Acute kidney failure, unspecified; L02.211 Cutaneous abscess of abdominal wall; L03.311 Cellulitis of abdominal wall; B95.62 Methicillin resistant Staphylococcus aureus infection as the cause of diseases classified elsewhere; I10 Essential (primary) hypertension; E78.5 Hyperlipidemia, unspecified; D50.9 Iron deficiency anemia, unspecified; Z90.49 Acquired absence of other specified parts of digestive tract
CPT/HCPCS: 36415; 71010; 80048; 80053; 80061; 80076; 81001; 81003; 83036; 83540; 83605; 83735; 84100; 84484; 85025; 85610; 85730; 87040; 87045; 87070; 87075; 87086; 93005; 96374; 96375; J0696; J1170; J1650; J2270; J2405; J2543; J3370; J7030; J7050

== ENCOUNTER 2017-03-22 11:02 | Outpatient (CLI) | payer OTHER ==
[~2017-03-22] VITALS: Ht 157.5 cm; Wt 66.4 kg
[~2017-03-22 11:02] MED LIST changes: +DOXY100T20 PO; -FER325 PO; +HYDR12.58 PO
[2017-03-22 11:07] VITALS: BP 150/67; PULSE 69; RESP 18; Ht 157.5 cm; Wt 66.4 kg
--- NOTE | 2017-03-22 18:12 | PN ---
Date/Time of Note Date/Time of Note DATE: 03/22/17 TIME: 18:06 Assessment/Plan Assessment/Plan Assessment/Plan [facility] Progress Note Date of Service: 03/22/17 Today's Impression & Plan: Overall has remained stable since discharge and doing well. Upper midline wound appears to be healing well. I suspect that this area will completely heal within the next 1-2 weeks. Percutaneous cholecystostomy drain site appears to have completely healed. No indication for acute surgical intervention. Discussed with patient and her granddaughter and answered all of their questions. With above assessment, I've recommended the following for today: 1. Continue current dressing changes at home 2. Important to not allow the skin to heal over a cavity 3. Follow with primary care physician. If the wound appears to have completely healed, the patient may be able to continue following with her primary care physician only and not have to come for another visit (due to the distance involved in the travel from her house to my office). Please note that I am happy to see the patient in the next 2 weeks if she or family would like to. Otherwise he can follow-up with us as needed. Thank you again for your great care of this very pleasant patient and wonderful family. If there are any questions, please feel free to call me at [phone]. Disclaimer: Inadvertent spelling or grammatical errors are likely due to EHR/ dictation software use and do not reflect on the overall quality of patient care. Updated Clinical Summary: A very pleasant 81-year-old lady with comorbidities including hypertension, who recently underwent percutaneous cholecystostomy tube placement at the end of October in an outside hospital. The patient was septic and had to be treated in the intensive care unit with bacteremia and eventually stabilized and was discharged home with followup plan to see a surgeon for a laparoscopic cholecystectomy. After evaluation from us, I scheduled the patient for laparoscopic cholecystectomy which was performed at [facility] on 02/16/2017 with finding of chronic cholecystitis. We also removed her percutaneous drain during the same operation. Post op, patient presented with sub-xiphoid midline incision pain. WBC check showed elevation (~ 15). I ordered CT scan of abd/pelvis that showed fluid collection under that site, and a smaller fluid collection under the previous perc-meena drain site. We advised patient to come back to the office on Monday03/03/17. Patient and family came to the ED at [facility] at which point the incision was opened and packed and the patient was admitted. Discharged home 03/07/2017. COMORBIDITIES: 1. Bacteremia end of October 2016, managed at an outside hospital, linked to possible acute cholecystitis requiring percutaneous cholecystostomy tube placement 11/26/2016, associated with sepsis and acute hypoxia and non-STEMI with Escherichia coli urinary tract infection and gram-negative bacteremia. There was also acute renal injury during this episode and syncopal episode without obvious head injury. Hypomagnesemia, hypokalemia and thrombocytopenia was noted. 2. Hypertension. 3. Urinary tract infections. 4. BMI 26.2. 5. Dyslipidemia. 6. Iron deficiency. 7. S/p laparoscopic cholecystectomy and removal of her percutaneous drain at [facility] on 02/16/2017 with finding of severe acute and chronic cholecystitis associated with mucosal ulceration and reactive epithelial changes, cholesterolosis, cholelithiasis (gross only), reactive lymph node and no evidence of malignancy. Subjective: No major events or complaints since discharge home. Old drain site and upper midline subxiphoid wound sites completely closed without any further drainage of pus. Upper midline wound also much smaller. Feels improved. No n/v; no diarrhea; no sob or cp Objective: Vitals: See below Exam: GENERAL: On exam, the patient was sitting in a chair and appeared to be comfortable and in no acute distress. ABDOMEN: Soft, nontender and nondistended; dressing on the area of the subxiphoid upper midline incision clean and removed. Old drain site with no purulent drainage. Rest of incisions are otherwise clean, dry and intact without any evidence of erythema, edema, discharge, or hernia. There are no peritoneal signs or guarding. Upper midline wound was redressed in the office. SKIN: Skin appears to be pink and feels warm to touch. NEUROLOGIC: Patient is awake, alert, and follows commands appropriately. Exam/Review of Systems Vital Signs Vitals Vital Signs Date Time Temp Pulse Resp B/P Pulse Ox O2 Delivery O2 Flow Rate FiO2 03/22/17 11:07 98.3 69 18 150/67 Room Air JUDY POMPA M.D. Mar 22, 2017 18:12
== END 2017-03-22 16:18 | disposition home or self-care (01) ==
LOC: HPC 11:02
PROVIDERS: ATTEND Transplant Surgery
DX: K81.0 Acute cholecystitis (principal); N39.0 Urinary tract infection, site not specified; I10 Essential (primary) hypertension; E78.5 Hyperlipidemia, unspecified; E61.1 Iron deficiency
CPT/HCPCS: G0463